=== PATIENT | male | born 1955 | race Caucasian/White ===

== ENCOUNTER 2016-07-07 06:46 | Inpatient (IN) | payer BC ==
[2016-07-07] MEDS ORDERED: SODIUM CHLORIDE 0.9% 1,000 ML IV STA (07:47)
--- NOTE | 2016-07-07 08:05 | XR ---
EXAMINATION TYPE: XR chest 2V DATE OF EXAM: 07/07/2016 8:00 AM COMPARISON: NONE HISTORY: Weakness and pneumonia TECHNIQUE: Frontal and lateral views of the chest are obtained. FINDINGS: There is background of chronic emphysematous change suspected. Increased opacity in bilate ral lower lungs is present. No large pleural effusion or pneumothorax is seen bilaterally The cardiac silhouette size is enlarged. The osseous structures are intact. IMPRESSION: Cardiomegaly with bilateral lower lung likely acute alveolar and interstitial edema and/ or infiltrates. Correlation with old outside study would be beneficial.
[2016-07-07 08:29] LABS: Basophils % (A) 0 %; CH 31.3; CHCM 33.5; Eosinophils % (A) 0 %; HDW 3.14; HGB 13.2 gm/dL (13.0-17.5); Luc # (Auto) 0.23; Luc % (Auto) 2; Lymphocytes # (A) 1.2 k/uL (1.0-4.8); Lymphocytes % (A) 8 %; MCH 30.3 pg (25.0-35.0); MCHC 32.3 g/dL (31.0-37.0); MCV 93.8 fL (80.0-100.0); Mean Platelet Volume 8.4; Monocytes # (A) 0.9 k/uL (0-1.0); Monocytes % (A) 6 %; Neutrophils # (A) 12.7 k/uL (1.3-7.7); Neutrophils % (A) 84 %; RBC 4.37 m/uL (4.30-5.90); RDW 14.6 % (11.5-15.5); WBC 15.1 k/uL (3.8-10.6)
[2016-07-07 08:37] LABS: ALT 251 U/L (21-72); AST 179 U/L (17-59); Alkaline Phosphatase 52 U/L (38-126); Anion Gap 12 mmol/L; Blood Urea Nitrogen 27 mg/dL (9-20); Calcium 9.4 mg/dL (8.4-10.2); Carbon Dioxide 21 mmol/L (22-30); Chloride 108 mmol/L (98-107); Glucose 132 mg/dL (74-99); Magnesium 1.8 mg/dL (1.6-2.3); Non-African American GFR(MDRD) >60 (>60 ml/min/1.73 sqM); Phosphorous 4.1 mg/dL (2.5-4.5); Potassium 4.9 mmol/L (3.5-5.1); Sodium 141 mmol/L (137-145); Total Bilirubin 1.2 mg/dL (0.2-1.3); Total Protein 6.4 g/dL (6.3-8.2)
[2016-07-07 08:38] LABS: INR 1.4 (<1.1); Partial Thromboplastin Time 24.5 sec (22.0-30.0); Prothrombin Time 13.9 sec (9.0-12.0)
--- NOTE | 2016-07-07 08:39 | ED ---
General Adult HPI - General Chief complaint: Abdominal Pain Stated complaint: Abdominal Pain Time Seen by Provider: 07/07/16 07:14 Source: patient Mode of arrival: ambulatory Limitations: no limitations - History of Present Illness Initial comments: This is a 61-year-old male here for evaluation of shortness of breath and cough. Patient has no medical history that he states. He takes no Medications , seen in urgent care 3 days ago for shortness of breath was given antibiotics for possible pneumonia discharged home. Patient states shortness of breath about off but increasing for 3 weeks worse with exertion worse when he lays down flat and worse at night. Patient has no travel history, no fever cough or congestion - Related Data Home Medications Medication Instructions Recorded Confirmed Albuterol Inhaler [Ventolin Hfa 2 puff INHALATION Q6HR PRN 07/07/16 07/07/16 Inhaler] Ibuprofen [Advil] 600 mg PO Q8HR PRN 07/07/16 07/07/16 Levofloxacin [Levaquin] 500 mg PO DAILY 07/07/16 07/07/16 Multivitamin [Men's Multi-Vitamin] 1 tab PO DAILY 07/07/16 07/07/16 guaiFENesin [Mucinex] 1,200 mg PO DAILY 07/07/16 07/07/16 predniSONE 20 mg PO BID 07/07/16 07/07/16 Allergies Allergy/AdvReac Type Severity Reaction Status Date / Time No Known Allergies Allergy Verified 07/07/16 09:26 Review of Systems ROS Statement: Those systems with pertinent positive or pertinent negative responses have been documented in the HPI. ROS Other: All systems not noted in ROS Statement are negative. Past Medical History Past Medical History: Cancer Additional Past Medical History / Comment(s): testicular CA History of Any Multi-Drug Resistant Organisms: None Reported Past Surgical History: Appendectomy Additional Past Surgical History / Comment(s): right testicle removed 2001 Past Psychological History: No Psychological Hx Reported Smoking Status: Former smoker Past Alcohol Use History: Occasional Past Drug Use History: None Reported General Exam Limitations: no limitations General appearance: alert, in no apparent distress Head exam: Present: atraumatic, normocephalic, normal inspection Eye exam: Present: normal appearance, PERRL, EOMI. Absent: scleral icterus, conjunctival injection, periorbital swelling ENT exam: Present: normal exam, mucous membranes moist Neck exam: Present: normal inspection. Absent: tenderness, meningismus, lymphadenopathy Respiratory exam: Present: normal lung sounds bilaterally. Absent: respiratory distress, wheezes, rales, rhonchi, stridor Cardiovascular Exam: Present: regular rate, normal rhythm, normal heart sounds, systolic murmur. Absent: diastolic murmur, rubs, gallop, clicks GI/Abdominal exam: Present: soft, normal bowel sounds. Absent: distended, tenderness, guarding, rebound, rigid Extremities exam: Present: normal inspection, full ROM, normal capillary refill. Absent: tenderness, pedal edema, joint swelling, calf tenderness Back exam: Present: normal inspection Neurological exam: Present: alert, oriented X3, CN II-XII intact Psychiatric exam: Present: normal affect, normal mood Skin exam: Present: warm, dry, intact, normal color. Absent: rash Course Vital Signs 07/07/16 07/07/16 06:49 09:51 Temperature 97.3 F L 97.0 F L Pulse Rate 107 H 105 H Respiratory 20 18 Rate Blood Pressure 101/72 101/70 O2 Sat by Pulse 96 97 Oximetry - Reevaluation(s) Reevaluation #1: 07/07/16 10:16 Patient still feeling short of breath, not well EKG Findings - EKG Comments: EKG Findings:: EKG shows sinus tachycardia without 2, DC 190, QRS 90, QTC 508 Medical Decision Making - Medical Decision Making 58 female year with history of heart murmur, heart failure. Patient denies chest pain with head increases exertional shortness of breath. Patient will be admitted for cardiac observation evaluation and treatment, trending up troponin - Lab Data Result diagrams: 07/07/16 08:11 07/07/16 08:11 Lab Results 07/07/16 07/07/16 07/07/16 Range/Units 08:11 08:11 08:11 WBC 15.1 H (3.8-10.6) k/uL RBC 4.37 (4.30-5.90) m/uL Hgb 13.2 (13.0-17.5) gm/dL Hct 41.0 (39.0-53.0) % MCV 93.8 (80.0-100.0) fL MCH 30.3 (25.0-35.0) pg MCHC 32.3 (31.0-37.0) g/dL RDW 14.6 (11.5-15.5) % Plt Count 301 (150-450) k/uL Neutrophils % 84 % Lymphocytes % 8 % Monocytes % 6 % Eosinophils % 0 % Basophils % 0 % Neutrophils # 12.7 H (1.3-7.7) k/uL Lymphocytes # 1.2 (1.0-4.8) k/uL Monocytes # 0.9 (0-1.0) k/uL Eosinophils # 0.0 (0-0.7) k/uL Basophils # 0.0 (0-0.2) k/uL PT (9.0-12.0) sec INR (<1.1) APTT (22.0-30.0) sec D-Dimer (<0.60) mg/L FEU Sodium 141 (137-145) mmol/L Potassium 4.9 (3.5-5.1) mmol/L Chloride 108 H (98-107) mmol/L Carbon Dioxide 21 L (22-30) mmol/L Anion Gap 12 mmol/L BUN 27 H (9-20) mg/dL Creatinine 0.90 (0.66-1.25) mg/dL Est GFR (MDRD) Af Amer >60 (>60 ml/min/1.73 sqM) Est GFR (MDRD) Non-Af >60 (>60 ml/min/1.73 sqM) Glucose 132 H (74-99) mg/dL Plasma Lactic Acid Jeevan (0.7-2.0) mmol/L Calcium 9.4 (8.4-10.2) mg/dL Phosphorus 4.1 (2.5-4.5) mg/dL Magnesium 1.8 (1.6-2.3) mg/dL Total Bilirubin 1.2 (0.2-1.3) mg/dL AST 179 H (17-59) U/L ALT 251 H (21-72) U/L Alkaline Phosphatase 52 (38-126) U/L Total Creatine Kinase 155 (55-170) U/L CK-MB (CK-2) 7.3 H* (0.0-2.4) ng/mL CK-MB (CK-2) Rel Index 4.7 Troponin I 0.646 H* (0.000-0.034) ng/mL NT-Pro-B Natriuret Pep pg/mL Total Protein 6.4 (6.3-8.2) g/dL Albumin 3.2 L (3.5-5.0) g/dL 07/07/16 07/07/16 07/07/16 Range/Units 08:11 08:11 08:11 WBC (3.8-10.6) k/uL RBC (4.30-5.90) m/uL Hgb (13.0-17.5) gm/dL Hct (39.0-53.0) % MCV (80.0-100.0) fL MCH (25.0-35.0) pg MCHC (31.0-37.0) g/dL RDW (11.5-15.5) % Plt Count (150-450) k/uL Neutrophils % % Lymphocytes % % Monocytes % % Eosinophils % % Basophils % % Neutrophils # (1.3-7.7) k/uL Lymphocytes # (1.0-4.8) k/uL Monocytes # (0-1.0) k/uL Eosinophils # (0-0.7) k/uL Basophils # (0-0.2) k/uL PT 13.9 H (9.0-12.0) sec INR 1.4 (<1.1) APTT 24.5 (22.0-30.0) sec D-Dimer 3.93 H (<0.60) mg/L FEU Sodium (137-145) mmol/L Potassium (3.5-5.1) mmol/L Chloride (98-107) mmol/L Carbon Dioxide (22-30) mmol/L Anion Gap mmol/L BUN (9-20) mg/dL Creatinine (0.66-1.25) mg/dL Est GFR (MDRD) Af Amer (>60 ml/min/1.73 sqM) Est GFR (MDRD) Non-Af (>60 ml/min/1.73 sqM) Glucose (74-99) mg/dL Plasma Lactic Acid Jeevan 1.9 (0.7-2.0) mmol/L Calcium (8.4-10.2) mg/dL Phosphorus (2.5-4.5) mg/dL Magnesium (1.6-2.3) mg/dL Total Bilirubin (0.2-1.3) mg/dL AST (17-59) U/L ALT (21-72) U/L Alkaline Phosphatase (38-126) U/L Total Creatine Kinase (55-170) U/L CK-MB (CK-2) (0.0-2.4) ng/mL CK-MB (CK-2) Rel Index Troponin I (0.000-0.034) ng/mL NT-Pro-B Natriuret Pep 13509 pg/mL Total Protein (6.3-8.2) g/dL Albumin (3.5-5.0) g/dL - Radiology Data Radiology results: report reviewed (Chest x-ray shows bilateral effusions, CTA shows right-sided heart pressures, bilateral pleural effusions), image reviewed Critical Care Time Critical Care Time: Yes Total Critical Care Time: 31 Disposition Clinical Impression: CHF (congestive heart failure), Aortic stenosis, NSTEMI (non-ST elevated myocardial infarction) Disposition: ADMITTED IP TO THIS HOSP Condition: Serious Referrals: Zaid Gallardo MD [Primary Care Provider] - 1-2 days
[2016-07-07] MEDS ORDERED: RX INFO: IV CONTRAST WAS GIVEN 1 EACH MISC MISCELLANE PRN (08:40)
[2016-07-07 09:22] LABS: Creatine Kinase MB 7.3 ng/mL (0.0-2.4); Troponin I 0.646 ng/mL (0.000-0.034)
--- NOTE | 2016-07-07 09:58 | CT ---
EXAMINATION TYPE: CT angio chest DATE OF EXAM: 07/07/2016 9:13 AM COMPARISON: Radiograph same day HISTORY: 61-year-old male elevated d-dimer, pneumonia TECHNIQUE: Contiguous axial scanning of the chest performed with IV Contrast, patient injected with 1 00 mL of Omnipaque 350. Coronal/sagittal MIP reconstructions performed. CT DLP: 385.3 mGycm Automated exposure control for dose reduction was used. FINDINGS: The heart is borderline enlarged without pericardial effusion. Aortic valvular and coronary vessel ca lcifications are present. Marker for coronary artery disease. Ectasia of the ascending aorta at 3.6 cm with conventional arch vessel branching anatomy. There is ec ruby of the upper descending thoracic aorta at 3.0 cm. Satisfactory opacification of the pulmonary arterial system with large caliber to the main right and left pulmonary arteries at 2.8 and 3.0 cm, respectively, suggesting underlying pulmonary arterial hyp ertension. No evidence for pulmonary embolus. There is no reflux of contrast into the hepatic veins or flattening of the interventricular septum. Prominent mediastinal lymph nodes measure up to 9 mm. There is edematous change throughout the intrathoracic fat with small to moderate bilateral pleural e ffusions, thickening of the central interstitium, peribronchovascular round glass opacity especially in the mid and lower lungs with some corresponding septal lines at the lung bases. More confluent pat jenae medial right basilar opacity. Visualized upper abdomen shows no gross abnormality. Bones: Mild endplate spondylosis. No osseous destructive process. IMPRESSION: 1. PULMONARY ARTERIAL HYPERTENSION THOUGH WITHOUT EVIDENCE FOR PULMONARY EMBOLUS. 2. CONSTELLATION OF FINDINGS INCLUDING SMALL TO MODERATE PLEURAL EFFUSIONS, SEPTAL LINES, INTERSTITIA L THICKENING, AND PATCHY AREAS OF GROUNDGLASS. CORRELATE FOR CHF AND DEVELOPING PULMONARY EDEMA. THE PRESENCE OF PLEURAL EFFUSIONS MAKES INFLAMMATORY PROCESSES SUCH E D TECH, VASCULITIS, AND ATYPICAL PNEU MONIAS LESS LIKELY. CLINICALLY CORRELATE.
[2016-07-07] MEDS ORDERED: ASPIRIN 325 MG TAB PO STA (10:13)
[2016-07-07] MEDS ORDERED: HEPARIN SODIUM,PORCINE 5,000 UNIT/ML 1 ML VIAL IV ONE (10:14)
[2016-07-07] MEDS ORDERED: HEPARIN SODIUM,PORCINE 5,000 UNIT/ML 1 ML VIAL IV PRN (10:14)
[2016-07-07] MEDS ORDERED: HEPARIN SODIUM,PORCINE/D5W PMX 25,000 UNIT in DEXTROSE/WATER 1 500ML.BAG IV SCH (10:15)
[2016-07-07] MEDS: SODIUM CHLORIDE 0.9% 1,000 ML IV SCH ×2 (10:31→21:27)
[2016-07-07] MEDS: FUROSEMIDE 10 MG/ML 4 ML VIAL IV SCH ×2 (10:37→21:27)
[2016-07-07] MEDS ORDERED: ALBUTEROL NEBULIZED 2.5 MG/3 ML INHALATION PRN (12:38)
--- NOTE | 2016-07-07 13:45 | P.HPIM ---
<Heather Wallace A - Last Filed: 07/07/16 13:34> History of Present Illness H&P Date: 07/07/16 Chief Complaint: Shortness of breath This is a 61-year-old male. His primary care physician is Dr. Amor Gallardo. He has a past mental history of testicular cancer on the right diagnosed in 2001 status post surgical resection and chemotherapy, hard of hearing, varicose veins status post stripping. Patient has had shortness of breath for a couple of weeks and getting worse. He was unable to get into Dr. Amor Gallardo's office and they went to [facility] on Monday and was diagnosed with pneumonia and placed on Levaquin, albuterol inhaler and steroids. His states that he was not getting any better and the steroids were keeping him from sleeping at night and she made him come into [facility] emergency center for evaluation. Patient denies having any chest pain. He has seen a home health attendant about 1-1/2 years ago when his primary care physician found a leaky valve. He was told that he would eventually need a valve replacement. There was no follow-up and he did not have any medications started. Patient also had a syncopal episode when he got up to the bathroom on Monday night. His d-dimer was 3.93. CAT scan and she'll of the chest showed no pulmonary embolism.small to moderate pleural effusions, septal lines, interstitial thickening, patchy areas of groundglass. Correlate for CHF and developing pulmonary edema. Presence of pleural effusions makes inflammatory processes less likely.borderline cardio megaly without pericardial effusion.chest x-ray shows cardiomegaly with bilateral lower lung likely acute alveolar and interstitial edema and/or infiltrates. His white count was 15.1, GFR greater than 60. Troponin was elevated at0.646. Patient was started on IV Lasix, aspirin, heparin drip. Cardiology consult requested and patient was admitted to the selective care unit. Patient does state that he is feeling okay at this time. Review of Systems All systems: negative Constitutional: Denies chills, Denies fever Eyes: denies blurred vision, denies pain Ears, nose, mouth and throat: Denies headache, Denies sore throat Cardiovascular: Reports decreased exercise tolerance, Reports dyspnea on exertion, Reports leg edema, Reports orthopnea, Reports shortness of breath, Reports syncope, Denies chest pain, Denies palpitations Respiratory: Reports cough Gastrointestinal: Denies abdominal pain, Denies diarrhea, Denies nausea, Denies vomiting Musculoskeletal: Denies myalgias Integumentary: Denies pruritus, Denies rash Neurological: Denies numbness, Denies weakness Psychiatric: Denies anxiety, Denies depression Endocrine: Denies fatigue, Denies weight change Past Medical History Past Medical History: Cancer, Hearing Disorder / Deafness, Syncope Additional Past Medical History / Comment(s): 2001 right testicular CA with surgery and chemo, KOI bilaterally, pt/spouse state he passed out last week . History of Any Multi-Drug Resistant Organisms: None Reported Past Surgical History: Appendectomy Additional Past Surgical History / Comment(s): right testicle removed 2001, 2014 colonoscopy-normal leg. Past Anesthesia/Blood Transfusion Reactions: No Reported Reaction Past Psychological History: No Psychological Hx Reported Additional Psychological History / Comment(s): Pt resides with his spouse. He is independent. Smoking Status: Former smoker Past Alcohol Use History: Daily Additional Past Alcohol Use History / Comment(s): Pt was a smoker 2 packs per day for 15 years and quit 20 years ago. He denies any medical marijuana or marijuana or street drug use. He states he drinks 2 beers a day. 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 Past Drug Use History: None Reported - Past Family History Father Family Medical History: No Reported History Additional Family Medical History / Comment(s): Father is 81 yrs old and healthy. Mother Family Medical History: Cancer Additional Family Medical History / Comment(s): Mother at age 72 from a CVA hemorrhagic with history of breast cancer. Brother(s) Additional Family Medical History / Comment(s): Patient has 2 brothers and one has history of lung cancer and 1 of colon cancer. Sister(s) Additional Family Medical History / Comment(s): Patient has 1 sister with no major medical problems. Patient has one son and one daughter with no major medical problems. Medications and Allergies Home Medications Medication Instructions Recorded Confirmed Type Albuterol Inhaler [Ventolin Hfa 2 puff INHALATION Q6HR PRN 07/07/16 07/07/16 History Inhaler] Ibuprofen [Advil] 600 mg PO Q8HR PRN 07/07/16 07/07/16 History Levofloxacin [Levaquin] 500 mg PO DAILY 07/07/16 07/07/16 History Multivitamin [Men's Multi-Vitamin] 1 tab PO DAILY 07/07/16 07/07/16 History guaiFENesin [Mucinex] 1,200 mg PO DAILY 07/07/16 07/07/16 History predniSONE 20 mg PO BID 07/07/16 07/07/16 History Allergies Allergy/AdvReac Type Severity Reaction Status Date / Time No Known Allergies Allergy Verified 07/07/16 09:26 Physical Exam Vitals: Vital Signs Pulse Resp Pulse Ox 07/07/16 11:56 100 14 100 Gen: This is a overweight 61-year-old male. He is sitting up in bed and appears to be in no acute distress. No respiratory distress noted HEENT: Head is atraumatic, normocephalic. Pupils equal, round. Sclerae is anicteric. Conjunctiva pink. Mucous membranes of the mouth are slightly dry. NECK: Supple. No JVD. No lymphadenopathy. No thyromegaly. LUNGS: Clear to auscultation. No wheezes or rhonchi. No intercostal retractions. HEART: Regular rate and rhythm. Systolic murmur. ABDOMEN: Soft. Bowel sounds are present. No masses. No tenderness. EXTREMITIES: 1+ pedal edema. No calf tenderness. Dorsalis pedis is palpable bilaterally. Varicosities noted on the right lower leg NEUROLOGICAL: Patient is awake, alert and oriented x3. Cranial nerves 2 through 12 are grossly intact. Results CBC & Chem 7: 07/07/16 08:11 07/07/16 08:11 Thrombosis Risk Factor Assmnt - DVT/VTE Prophylaxis DVT/VTE Prophylaxis: Pharmacologic Prophylaxis ordered - Choose All That Apply Any of the Below Risk Factors Present?: Yes Each Factor Represents 1 point: Acute ND, Heart failure (<1month), Obesity (BMI >25) Other Risk Factors: Yes Each Risk Factor Represents 2 Points: Age 61-74 years, Malignancy Other congenital or acquired thrombophilia - If yes, enter type in comment: No Thrombosis Risk Factor Assessment Total Risk Factor Score: 7 Thrombosis Risk Factor Assessment Level: High Risk Assessment and Plan Plan: 1. Acute difficulty breathing secondary to acute heart failure most likely diastolic, aortic stenosis, possible acute coronary syndrome with elevated troponins, possible cardiomyopathy with recent syncopal episode. Patient started on Lasix 40 mg IV every 12 hours. Echocardiogram ordered. Cardiology consult. Continue heparin and aspirin daily. Repeat troponins. 2. Recent treatment for pneumonia. Doubtful based on CAT scan and chest x-ray. 3. Hard of hearing, stable. 4. History of testicular cancer status post surgical resection and chemotherapy , stable. 5. Varicosities right leg status post venous stripping in the past. 6. Remote history of tobacco use. 7. Daily alcohol use of 2 beers. Patient denies having DTs in the past. 8. Gastric intestinal prophylaxis. Protonix. 9. DVT prophylaxis. Heparin drip. Patient will be admitted to the hospital for a minimum of 2 night stay. Discharge plan: Return home Impression and plan of care have been directed as dictated by the signing physician. Heather Wallace nurse practitioner acting as scribe for signing physician. Cc: Dr. Gal Gallardo Time with Patient: Greater than 30 <Fiona Nix - Last Filed: 07/08/16 17:21> Past Medical History Past Medical History: Heart Failure Additional Past Medical History / Comment(s): Aortic stenosis,systolic heart failure. Physical Exam Vitals: Vital Signs Temp Pulse Resp BP BP Pulse Ox 07/08/16 15:32 90 16 07/08/16 15:30 96.6 F L 90 16 130/54 96 07/08/16 11:55 98 16 07/08/16 11:54 97.3 F L 98 16 78/59 95 07/08/16 08:00 96.8 F L 98 16 94/7 96 07/08/16 04:00 97.0 F L 101 H 18 93/61 92 L 07/08/16 00:00 108 H 18 88/64 93 L 07/07/16 20:00 97.8 F 109 H 18 103/66 95 Intake and Output 07/08/16 07/08/16 07/08/16 06:59 14:59 22:59 Intake Total 720 Output Total 2049 Balance -1329 Intake: IV 160 0.9NS @20cc/hr 160 Intake, IV Titration 240 Amount Sodium Chloride 0.9% 1, 240 000 ml @ 20 mls/hr IV . Q24H [facility] Rx#:[id number] Oral 320 Output: Urine 2049 Other: Voiding Method Toilet Toilet Toilet Urinal Urinal Urinal # Voids 1 2 Weight 93.5 kg Results CBC & Chem 7: 07/08/16 05:45 07/08/16 05:45 Labs: Abnormal Lab Results - Last 24 Hours (Table) 07/07/16 07/08/16 07/08/16 Range/Units 20:40 05:45 05:45 WBC 22.7 H (3.8-10.6) k/uL RBC 4.16 L (4.30-5.90) m/uL Hgb 12.8 L (13.0-17.5) gm/dL Neutrophils # 19.7 H (1.3-7.7) k/uL Monocytes # 1.5 H (0-1.0) k/uL BUN 23 H (9-20) mg/dL Glucose 148 H (74-99) mg/dL AST 157 H (17-59) U/L ALT 282 H (21-72) U/L Troponin I 0.597 H* (0.000-0.034) ng/mL Total Protein 5.8 L (6.3-8.2) g/dL Albumin 2.9 L (3.5-5.0) g/dL Assessment and Plan Plan: Acute systolic as it was printed diastolic by mistake along with severe Aortic valve stenosis with EF 20 %. The first paragraph will read: 1. Acute respiratory failure due to acute systolic heart failure and severe Aortic valve stenosis.
[2016-07-07 14:22] VITALS: BMI 27.6
--- NOTE | 2016-07-07 17:58 | CONS ---
DATE OF CONSULTATION: 07/07/2016 This patient's electronic medical record is reviewed. Patient is a 61-year-old gentleman who was having symptoms of shortness of breath for the last one week. Patient initially was seen at [facility] and patient was told he has pneumonia and was put on steroids and Levaquin. However, patient did not improve and continued to have shortness of breath. He came to the emergency room, where patient was found to be in congestive heart failure. Patient's D-dimer level was 3.93. CT scan was performed which did not show any evidence of pulmonary embolism. Patient has been told in the past that he had a heart murmur; according to him, patient was evaluated in our office. We will try to get the records. Patient denies any history of angina. There is no prior history of myocardial infarction. Past medical history includes: 1. History of testicular cancer with surgery. 2. History of appendectomy. SOCIAL HISTORY: Patient is a former smoker. Physical examination at present reveals a 61-year-old gentleman who does not appear to be in any acute distress. Patient's blood pressure is 101/70 mmHg. Patent is afebrile. Heart rate is 100 per minute. Head/ENT examination is negative. Neck is supple. Jugular venous pressure is difficult to assess. Both the carotid pulses are felt. There is no bruit. Chest is symmetrical. HEART: The PMI is not felt. First heart sound is normal. Second heart sound is heard. There is a grade 3/6 ejection systolic murmur noted which peaks in mid to late systole. Lungs reveal bilateral scattered wheezes and a few basal rales. Abdomen is soft. EXTREMITIES: Peripheral pulsations are 1+. EKG shows left ventricular hypertrophy with a strain pattern. Patient lab tests show hemoglobin is 13.8. Electrolytes are normal. Patient's chest x-ray is suggestive of congestive cardiac failure. Patient's proBNP level is 14,500. Patient's echocardiogram reveals severely impaired left ventricular systolic function with evidence of severe degree of aortic stenosis. FINAL IMPRESSION: This patient has presented with shortness of breath due to acute on chronic left ventricular systolic failure. Patient's left ventricular systolic function is severely impaired and there is suggestion of severe aortic stenosis. RECOMMENDATIONS: At present I would recommend continuing to treat with the patient's IV diuretics. After the patient's condition is improved, he will need further evaluation to evaluate the aortic stenosis.
[2016-07-08 06:34] LABS: ALT 282 U/L (21-72); AST 157 U/L (17-59); Alkaline Phosphatase 63 U/L (38-126); Anion Gap 10 mmol/L; Blood Urea Nitrogen 23 mg/dL (9-20); Calcium 9.2 mg/dL (8.4-10.2); Carbon Dioxide 25 mmol/L (22-30); Chloride 105 mmol/L (98-107); Glucose 148 mg/dL (74-99); Non-African American GFR(MDRD) >60 (>60 ml/min/1.73 sqM); Sodium 140 mmol/L (137-145); Total Bilirubin 1.1 mg/dL (0.2-1.3); Total Protein 5.8 g/dL (6.3-8.2)
[2016-07-08 06:45] LABS: Basophils % (A) 0 %; CH 31.7; CHCM 33.5; Eosinophils % (A) 0 %; HCT 39.7 % (39.0-53.0); HDW 3.06; HGB 12.8 gm/dL (13.0-17.5); Luc # (Auto) 0.21; Luc % (Auto) 1; Lymphocytes # (A) 1.3 k/uL (1.0-4.8); Lymphocytes % (A) 6 %; MCH 30.7 pg (25.0-35.0); MCHC 32.2 g/dL (31.0-37.0); MCV 95.3 fL (80.0-100.0); Mean Platelet Volume 9.4; Monocytes # (A) 1.5 k/uL (0-1.0); Monocytes % (A) 6 %; Neutrophils # (A) 19.7 k/uL (1.3-7.7); Neutrophils % (A) 87 %; RBC 4.16 m/uL (4.30-5.90); WBC 22.7 k/uL (3.8-10.6); WBC (Perox) 23.18
[2016-07-08] MEDS: SODIUM CHLORIDE 0.9% 1,000 ML IV SCH (06:58)
[2016-07-08] MEDS: PANTOPRAZOLE 40 MG TABLET PO SCH (06:58)
[2016-07-08] MEDS: ASPIRIN 325 MG TAB PO SCH (08:05)
[2016-07-08] MEDS: guaiFENesin 600 MG TABLET.ER PO SCH (08:05)
[2016-07-08] MEDS: CARVEDILOL 3.125 MG TAB PO SCH ×2 (08:21→17:32)
[2016-07-08] MEDS ORDERED: SODIUM CHLORIDE 0.9% 1,000 ML IV SCH (08:30)
--- NOTE | 2016-07-08 08:36 | PN ---
DATE OF SERVICE: The patient was seen by my associated DrSayra Rosa. Patient comes into the hospital with increasing shortness of breath. Patient was seen in outpatient clinic, emergency clinic, felt to have had a pneumonia, has been treated with antibiotics without any improvement. Patient noted to have pulmonary edema without any evidence of pulmonary embolism. Patient also has moderate severe aortic stenosis with severely impaired LV function and predominant left ventricular failure. The patient also admits to drinking alcohol quite a bit and possibly drinking more than what he should be maybe which resulted in poor LV function and patient also has non-Q-wave myocardial infarction with some ST segment depression, remains in sinus rhythm. Patient's heparin has been stopped because of hemoptysis. Will have a pulmonary siebel consultant see him and we will continue supportive care and continue to improve his left ventricular function. When left ventricular function improved, patient needs to have a cardiac catheterization to define severity of coronary artery disease associated severity of aortic stenosis. Patient is not having any chest pain or pressure at present time. Patient is alert and oriented. Patient is reasonably active, but ( ) have alcohol may be his primary problem with aortic stenosis. Never been under the care of ( ). Patient is currently on Lasix 40 mg IV push q.12 hours along with aspirin and pantoprazole was added. Patient started to have hemoptysis. Will have a pulmonary siebel consultant see him and heparin has been discontinued because of the hemoptysis. Will add carvedilol 3.125 mg p.o. b.i.d. and continue supportive care. Patient's prognosis is guarded in spite of therapy. Physical examination revealed a 61-year-old gentleman, not in acute distress with stable vital signs with a pulse rate 109 beats per minute and regular, blood pressure of 103/66, respirations are 18. HEAD: Normocephalic. JVD is elevated minimally 10 mm above the clavicle, ejection systolic murmur heard in the aortic area. S1 and S2. S3 gallop is noted. Lungs show a few scattered rhonchi and rales all over the lung [place]. Extremities reveal no pedal edema. ASSESSMENT: 1. Acute on chronic congestive heart failure, predominant left ventricular failure. 2. Moderate to severe aortic stenosis. 3. Severely impaired left ventricular function, cardiomyopathy, need to rule out ischemia versus alcohol related. 4. No history of hypertension. 5. No history of diabetes. 6. Hemoptysis, need to have pulmonary siebel consultant evaluate for further problems. RECOMMENDATIONS: Continue supportive care and treatment for congestive heart failure, predominant left ventricular failure. Once the condition is better, patient needs to have a cardiac catheterization to assess severity of coronary artery disease. Patient's creatinine is normal. Troponins are consistent with non-Q-wave myocardial infarction 0.64 ( ). Prognosis is guarded in spite of therapy.
--- NOTE | 2016-07-08 09:23 | ECHOF ---
Referral Reason:Heart Failure MEASUREMENTS -------- HEIGHT: 182.9 cm WEIGHT: 97.5 kg BP: IVSd: 1.0 cm (0.6 - 1.1) LVIDd: 6.0 cm (3.9 - 5.3) LVPWd: 1.1 cm (0.6 - 1.1) IVSs: 1.4 cm LVIDs: 5.7 cm LVPWs: 1.2 cm Ao Diam: 3.9 cm (2.0 - 3.7) AV Cusp: 0.7 cm (1.5 - 2.6) LA Diam: 4.4 cm (2.7 - 3.8) MV EXCURSION: 9.371 mm (> 18.000) MV EF SLOPE: 38 mm/s (70 - 150) EPSS: 2.8 cm MV E Bryce: 1.22 m/s MV DecT: 228 ms MV A Bryce: 0.22 m/s MV E/A Ratio: 5.45 AV maxP.95 mmHg AV meanP.03 mmHg RAP: 5.00 mmHg RVSP: 13.29 mmHg FINDINGS -------- Sinus rhythm. This was a technically good study. The left ventricle is mildly dilated. Left ventricular wall thickness is normal. There is severe global hypokinesis of LV . Overall left ventricular systolic function is severely impaired with, an EF < 20%. The right ventricle is normal in size and function. The left atrium is mildly dilated. The right atrium is normal in size. Aortic valve is trileaflet and is severely thickened. There is severe aortic stenosis present. Peak/mean gradient across the Aortic Valve is 64.95mmHg / 46.03mmHg. The mitral valve leaflets are moderate to severely thickened. Moderate mitral annular calcification present. Mild mitral regurgitation is present. The peak and mean MV gradients are 7.08mmHg 2.17mmHg as measured by doppler. Mild tricuspid regurgitation present. The right ventricular systolic pressure, as measured by Doppler, is 13.29mmHg. Pulmonic valve appears structurally normal. The aortic root is mildy dilated. The pericardium is normal. CONCLUSIONS -------- 1. Sinus rhythm. 2. Aortic valve is trileaflet and is severely thickened. 3. There is severe aortic stenosis present. 4. Peak/mean gradient across the Aortic Valve is 64.95mmHg / 46.03mmHg. 5. The mitral valve leaflets are moderate to severely thickened. 6. Moderate mitral annular calcification present. 7. Mild mitral regurgitation is present. 8. The peak and mean MV gradients are 7.08mmHg 2.17mmHg as measured by doppler. 9. Mild tricuspid regurgitation present. 10. The right ventricular systolic pressure, as measured by Doppler, is 13.29mmHg. 11. Pulmonic valve appears structurally normal. 12. This was a technically good study. 13. The aortic root is mildy dilated. 14. The pericardium is normal. 15. The left ventricle is mildly dilated. 16. Left ventricular wall thickness is normal. 17. There is severe global hypokinesis of LV . 18. Overall left ventricular systolic function is severely impaired with, an EF < 20%. 19. The right ventricle is normal in size and function. 20. The left atrium is mildly dilated. 21. The right atrium is normal in size. PULL OUT OPERATOR: Krista Matta RDCS
[2016-07-08] MEDS: FUROSEMIDE 10 MG/ML 4 ML VIAL IV SCH (10:50)
--- NOTE | 2016-07-08 13:10 | P.PN ---
Subjective This is a 61-year-old male. His primary care physician is Dr. Amor Gallardo. He has a past mental history of testicular cancer on the right diagnosed in 2001 status post surgical resection and chemotherapy, hard of hearing, varicose veins status post stripping. Patient has had shortness of breath for a couple of weeks and getting worse. He was unable to get into Dr. Amor Gallardo's office and they went to [place] on Monday and was diagnosed with pneumonia and placed on Levaquin, albuterol inhaler and steroids. His states that he was not getting any better and the steroids were keeping him from sleeping at night and she made him come into [facility] emergency center for evaluation. Patient denies having any chest pain. He has seen a check embosser about 1-1/2 years ago when his primary care physician found a leaky valve. He was told that he would eventually need a valve replacement. There was no follow-up and he did not have any medications started. Patient also had a syncopal episode when he got up to the bathroom on Monday night. His d-dimer was 3.93. CAT scan and she'll of the chest showed no pulmonary embolism.small to moderate pleural effusions, septal lines, interstitial thickening, patchy areas of groundglass. Correlate for CHF and developing pulmonary edema. Presence of pleural effusions makes inflammatory processes less likely.borderline cardio megaly without pericardial effusion.chest x-ray shows cardiomegaly with bilateral lower lung likely acute alveolar and interstitial edema and/or infiltrates. His white count was 15.1, GFR greater than 60. Troponin was elevated at0.646. Patient was started on IV Lasix, aspirin, heparin drip. Cardiology consult requested and patient was admitted to the selective care unit. Patient does state that he is feeling okay at this time. 07/08: Repeat WBC is 22.7. troponins have been 0.646, 0.643 and 0.597. Repeat AST and ALT are still elevated. Patient is followed by cardiology with recommendations to treat heart failure and once stable heart catheterization. Echocardiogram reveals severe aortic stenosis, mild mitral regurgitation, mild tricuspid regurgitation, severe global hypokinesia of LV, EF less than 20%. Off heparin gtt. IV to saline lock. Lasix decreased to 20mg twice daily. Weight is down 4 kg. Objective - Vital Signs Vital signs: Vital Signs Temp 96.8 F L 07/08/16 08:00 Pulse 98 07/08/16 08:00 Resp 16 07/08/16 08:00 BP 94/7 07/08/16 08:00 Pulse Ox 96 07/08/16 08:00 Intake & Output 07/07/16 07/08/16 07/08/16 18:59 06:59 18:59 Intake Total 731.667 380 Output Total 850 1050 Balance -118.333 -670 Weight 97.522 kg 93.5 kg Intake: IV 160 0.9NS @20cc/hr 160 Intake, IV Titration 331.667 Amount Heparin Sodium,Porcine/ 131.667 D5w Pmx 25,000 unit In Dextrose/Water 1 500ml. bag @ 10.26 UNITS/KG/HR 20.01 mls/hr IV .Q24H [facility] Rx#:[id number] Sodium Chloride 0.9% 1, 200 000 ml @ 100 mls/hr IV . Q10H [facility] Rx#:[id number] Oral 400 220 Output: Urine 850 1050 Other: Voiding Method Urinal Toilet Toilet Urinal Urinal # Voids 1 1 4 - Exam Gen: This is a overweight 61-year-old male. He is sitting up in bed and appears to be in no acute distress. No respiratory distress noted HEENT: Head is atraumatic, normocephalic. Pupils equal, round. Sclerae is anicteric. Conjunctiva pink. Mucous membranes of the mouth are slightly dry. NECK: Supple. No JVD. No lymphadenopathy. No thyromegaly. LUNGS: Clear to auscultation. No wheezes or rhonchi. No intercostal retractions. HEART: Regular rate and rhythm. Systolic murmur. ABDOMEN: Soft. Bowel sounds are present. No masses. No tenderness. EXTREMITIES: 1+ pedal edema. No calf tenderness. Dorsalis pedis is palpable bilaterally. Varicosities noted on the right lower leg NEUROLOGICAL: Patient is awake, alert and oriented x3. Cranial nerves 2 through 12 are grossly intact. - Labs CBC & Chem 7: 07/08/16 05:45 07/08/16 05:45 Labs: Abnormal Lab Results - Last 24 Hours (Table) 07/07/16 07/07/16 07/08/16 Range/Units 15:37 20:40 05:45 WBC 22.7 H (3.8-10.6) k/uL RBC 4.16 L (4.30-5.90) m/uL Hgb 12.8 L (13.0-17.5) gm/dL Neutrophils # 19.7 H (1.3-7.7) k/uL Monocytes # 1.5 H (0-1.0) k/uL BUN (9-20) mg/dL Glucose (74-99) mg/dL AST (17-59) U/L ALT (21-72) U/L Troponin I 0.643 H* 0.597 H* (0.000-0.034) ng/mL Total Protein (6.3-8.2) g/dL Albumin (3.5-5.0) g/dL 07/08/16 Range/Units 05:45 WBC (3.8-10.6) k/uL RBC (4.30-5.90) m/uL Hgb (13.0-17.5) gm/dL Neutrophils # (1.3-7.7) k/uL Monocytes # (0-1.0) k/uL BUN 23 H (9-20) mg/dL Glucose 148 H (74-99) mg/dL AST 157 H (17-59) U/L ALT 282 H (21-72) U/L Troponin I (0.000-0.034) ng/mL Total Protein 5.8 L (6.3-8.2) g/dL Albumin 2.9 L (3.5-5.0) g/dL Assessment and Plan Plan: 1. Acute difficulty breathing secondary to acute systolic heart failure, severe aortic stenosis, non-ST elevated myocardial infarction, cardiomyopathyeither ischemic or alcoholic with recent syncopal episode. Patient started on Lasix 20 mg IV every 12 hours. Echocardiogram as above. Cardiology consult. Continue aspirin daily. Repeat troponins as above. 2. Recent treatment for pneumonia. Doubtful based on CAT scan and chest x-ray. 3. Hard of hearing, stable. 4. History of testicular cancer status post surgical resection and chemotherapy , stable. 5. Varicosities right leg status post venous stripping in the past. 6. Remote history of tobacco use. 7. Daily alcohol use of 2 beers. Patient denies having DTs in the past. 8. Gastric intestinal prophylaxis. Protonix. 9. DVT prophylaxis. Heparin drip. Discharge plan: Return home Impression and plan of care have been directed as dictated by the signing physician. Heather Wallace nurse practitioner acting as scribe for signing physician. Time with Patient: Greater than 30
--- NOTE | 2016-07-08 14:14 | XR ---
EXAMINATION TYPE: XR chest 2V DATE OF EXAM: 07/08/2016 2:08 PM COMPARISON: 07/07/2016 HISTORY: Chest congestion FINDINGS: 2 views the chest are submitted. There are bilateral pleural effusions with cardiomegaly and bibasila r infiltrate. There is a diffuse interstitial pattern. The heart is enlarged. No pneumothorax. Arthr opathy of the shoulders seen. Degenerative change of the spine noted. IMPRESSION: 1. Interstitial changes with cardiomegaly correlate for interstitial pneumonitis or venous congestion .
[2016-07-08] MEDS: MULTIVITAMINS, THERA 1 EACH TAB PO SCH (14:21)
--- NOTE | 2016-07-08 15:49 | P.CNPUL ---
History of Present Illness Consult date: 07/08/16 Reason for consult: dyspnea History of present illness: This is a 61-year-old male patient was having some shortness of breath approximately 1-2 weeks back. He reported exertional dyspnea. No orthopnea. No paroxysmal nocturnal dyspnea. He was having some limited cough and chest congestion. No chills. No fever. No pleurisy. No hemoptysis. The patient was seen outpatient clinics and he was given a ten-day course of Levaquin, prednisone burst taper and Ventolin. The patient was unable to complete a prednisone burst taper due to side effects. He did however take around 5 day worth of Levaquin. In the hospital the patient was seen in the emergency department initially and he was found to have some borderline elevation of d- dimer is at 3.93. CAT scan of the chest was done and it showed no evidence of pulmonary embolism. There was small to moderate-sized pleural effusions and septal lines and interstitial thickenings with some limited groundglass changes in lung bases bilaterally which raises the suspicion for congestion heart failure. In fact the patient was further worked up by an echocardiogram and he was found to have significant cardiomyopathy with an ejection fraction of less than 20%, severe aortic stenosis with a peak aortic valve gradient of 64 mmHg. There was also mild mitral regurgitation and mild chest cuspid regurgitation without any significant pericardial effusion. Based on all this, the patient was started on diuretics and he is currently on Lasix 20 mg IV push every 12 hours. He is feeling better. No chest pain. No swelling in lower extremities. No syncope. Troponins are positive and the levels are 0.6, 0.6 and 0.5 respectively. BNP level at a time of admission was above 14,000. Renal function is within normal limits. Review of Systems full review of system was done and the positive findings are almost above in history of present illness Past Medical History Past Medical History: Cancer, Hearing Disorder / Deafness, Syncope Additional Past Medical History / Comment(s): Testicular cancer with a previous orchiectomy followed by chemoradiation therapy [id number], bilateral hearing impairment, History of Any Multi-Drug Resistant Organisms: None Reported Past Surgical History: Appendectomy Additional Past Surgical History / Comment(s): right orchiectomy 2001, 2014 colonoscopy-normal leg. Past Anesthesia/Blood Transfusion Reactions: No Reported Reaction Past Psychological History: No Psychological Hx Reported Additional Psychological History / Comment(s): Pt resides with his spouse. He is independent. Smoking Status: Former smoker Past Alcohol Use History: Daily Additional Past Alcohol Use History / Comment(s): Pt was a smoker 2 packs per day for 15 years and quit 20 years ago. He denies any medical marijuana or marijuana or street drug use. He states he drinks 2 beers a day. 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 Past Drug Use History: None Reported - Past Family History Father Family Medical History: No Reported History Additional Family Medical History / Comment(s): Father is 81 yrs old and healthy. Mother Family Medical History: Cancer Additional Family Medical History / Comment(s): Mother at age 72 from a CVA hemorrhagic with history of breast cancer. Brother(s) Additional Family Medical History / Comment(s): Patient has 2 brothers and one has history of lung cancer and 1 of colon cancer. Sister(s) Additional Family Medical History / Comment(s): Patient has 1 sister with no major medical problems. Patient has one son and one daughter with no major medical problems. Medications and Allergies Home Medications Medication Instructions Recorded Confirmed Type Albuterol Inhaler [Ventolin Hfa 2 puff INHALATION Q6HR PRN 07/07/16 07/07/16 History Inhaler] Ibuprofen [Advil] 600 mg PO Q8HR PRN 07/07/16 07/07/16 History Levofloxacin [Levaquin] 500 mg PO DAILY 07/07/16 07/07/16 History Multivitamin [Men's Multi-Vitamin] 1 tab PO DAILY 07/07/16 07/07/16 History guaiFENesin [Mucinex] 1,200 mg PO DAILY 07/07/16 07/07/16 History predniSONE 20 mg PO BID 07/07/16 07/07/16 History Allergies Allergy/AdvReac Type Severity Reaction Status Date / Time No Known Allergies Allergy Verified 07/07/16 09:26 Physical Exam Vitals: Vital Signs Temp Pulse Resp BP BP Pulse Ox 07/08/16 15:32 90 16 07/08/16 15:30 96.6 F L 90 16 130/54 96 07/08/16 11:55 98 16 07/08/16 11:54 97.3 F L 98 16 78/59 95 07/08/16 08:00 96.8 F L 98 16 94/7 96 07/08/16 04:00 97.0 F L 101 H 18 93/61 92 L 07/08/16 00:00 108 H 18 88/64 93 L 07/07/16 20:00 97.8 F 109 H 18 103/66 95 07/07/16 15:45 102 H 16 07/07/16 15:44 97.0 F L 102 H 16 92/63 94 L Intake and Output 07/08/16 07/08/16 07/08/16 06:59 14:59 22:59 Intake Total 720 Output Total 2049 Balance -1330 Intake: IV 160 0.9NS @20cc/hr 160 Intake, IV Titration 240 Amount Sodium Chloride 0.9% 1, 240 000 ml @ 20 mls/hr IV . Q24H [facility] Rx#:[id number] Oral 320 Output: Urine 2049 Other: Voiding Method Toilet Toilet Toilet Urinal Urinal Urinal # Voids 1 2 Weight 93.5 kg Head exam was generally normal. There was no scleral icterus or corneal arcus. Mucous membranes were moist.Neck was supple and without jugular venous distension, thyromegaly, or carotid bruits. Carotids were easily palpable bilaterally. There was no adenopathy. Lung sounds are diminished bilaterally especially in lung bases. No crackles. No wheezes. No rhonchi. Heart sounds are regular and there is a harsh systolic ejection murmur grade 4/6 heard throughout the precordium.Abdominal exam revealed normal bowel sounds. The abdomen was soft, non-tender, and without masses, organomegaly, or appreciable enlargement of the abdominal aorta.Examination of the extremities revealed easily palpable radial, femoral and pedal pulses. There was no cyanosis, clubbing or edema. Results - Laboratory Findings CBC and BMP: 07/08/16 05:45 07/08/16 05:45 PT/INR, D-dimer PT 13.9 sec (9.0-12.0) H 07/07/16 08:11 INR 1.4 (<1.1) 07/07/16 08:11 D-Dimer 3.93 mg/L FEU (<0.60) H 07/07/16 08:11 Abnormal lab findings: Abnormal Labs 07/07/16 07/07/16 07/08/16 15:37 20:40 05:45 WBC 22.7 H RBC 4.16 L Hgb 12.8 L Neutrophils # 19.7 H Monocytes # 1.5 H BUN Glucose AST ALT Troponin I 0.643 H* 0.597 H* Total Protein Albumin 07/08/16 05:45 WBC RBC Hgb Neutrophils # Monocytes # BUN 23 H Glucose 148 H AST 157 H ALT 282 H Troponin I Total Protein 5.8 L Albumin 2.9 L - Diagnostic Findings Chest x-ray: image reviewed Assessment and Plan Plan: Assessment 1 acute CHF, systolic dysfunction, with an ejection fraction of less than 20% on echocardiogram and evidence of severe aortic stenosis. CT angios the chest shows no evidence of pneumonia and there is bilateral pleural effusion and hazy groundglass infiltrates in lung bases, typical of CHF 2 severe aortic stenosis 3 acute non-ST elevation myocardial infarction [place] positive troponin leaks 4 leukocytosis, mild, likely reactive due to steroid use 5 impaired hearing 6 testicular cancer status post right orchiectomy followed by chemotherapy currently inactive in stable Plan No need for antibiotics. No need for systemic steroids. Continue diuresis. Management of an acute non-ST segment elevation myocardial infarctions CHF per cardiology. Likely will need a cardiac catheterization. Echocardiogram results were noted. Continue Coreg. Continue aspirin. continue IV heparin. IV diuretics and this will be switched to oral once the patient is further optimized.
[2016-07-08 17:47] LABS: Appearance,Urine Clear (Clear); Bilirubin,Urine 1+ (Negative); Glucose,Urine (UA) Negative (Negative); Ketones,Urine Negative (Negative); Leukocyte Esterase,Urine Negative (Negative); Mucus,Urine Occasional /hpf; Nitrite,Urine Negative (Negative); Particle Count 15526; Protein,Urine 2+ (Negative); RBC,Urine 2 /hpf (0-5); Specific Gravity,Urine 1.031 (1.001-1.035); UA Billing (MACRO vs. MICRO) MICRO; WBC,Urine 3 /hpf (0-5)
[2016-07-08] MEDS ORDERED: FUROSEMIDE 10 MG/ML 2 ML VIAL IV SCH (21:00)
[2016-07-09 06:38] LABS: Basophils % (A) 0 %; CH 31.1; CHCM 33.3; Eosinophils % (A) 0 %; HCT 40.4 % (39.0-53.0); HDW 3.06; Luc # (Auto) 0.32; Luc % (Auto) 2; Lymphocytes # (A) 1.6 k/uL (1.0-4.8); Lymphocytes % (A) 8 %; MCH 30.4 pg (25.0-35.0); MCHC 32.3 g/dL (31.0-37.0); MCV 94.1 fL (80.0-100.0); Mean Platelet Volume 8.5; Monocytes # (A) 1.5 k/uL (0-1.0); Monocytes % (A) 7 %; Neutrophils # (A) 17.1 k/uL (1.3-7.7); Neutrophils % (A) 83 %; RBC 4.29 m/uL (4.30-5.90); RDW 14.9 % (11.5-15.5); WBC 20.5 k/uL (3.8-10.6); WBC (Perox) 22.42
[2016-07-09 06:54] LABS: ALT 678 U/L (21-72); AST 672 U/L (17-59); Alkaline Phosphatase 70 U/L (38-126); Anion Gap 13 mmol/L; Blood Urea Nitrogen 39 mg/dL (9-20); Carbon Dioxide 23 mmol/L (22-30); Chloride 102 mmol/L (98-107); Glucose 130 mg/dL (74-99); Non-African American GFR(MDRD) 59 (>60 ml/min/1.73 sqM); Potassium 4.3 mmol/L (3.5-5.1); Sodium 138 mmol/L (137-145); Total Bilirubin 1.7 mg/dL (0.2-1.3); Total Protein 5.7 g/dL (6.3-8.2)
[2016-07-09] MEDS: PANTOPRAZOLE 40 MG TABLET PO SCH (06:54)
[2016-07-09] MEDS: guaiFENesin 600 MG TABLET.ER PO SCH (10:06)
[2016-07-09] MEDS: ASPIRIN 325 MG TAB PO SCH (10:06)
--- NOTE | 2016-07-09 10:51 | PN ---
INTERVAL HISTORY: Patient continued to be hemodynamically stable. Currently sitting at the bedside said that he was up to the bathroom feeling slightly short of breath, but no major events reported by nursing staff. Patient is denying abdominal pain, dizziness, lightheadedness, or blurry vision. PHYSICAL EXAMINATION: VITAL SIGNS: 97.1, 88, 18, 80/60 and saturation is 96% on room air. LUNGS: Diminished bilaterally. HEART: Normal S1, S2. ABDOMEN: Soft, no tenderness, positive bowel sounds in all 4 quadrants. LOWER EXTREMITY: Trace edema. PSYCH: Alert and oriented, following commands. SKIN: No new rash. IMAGING AND LABS: White blood count is 20, normal otherwise CBC. Chem-7 shown normal findings. Liver function tests elevated at 672 AST and 157 ALT, albumin is low at 2.7. ASSESSMENT AND PLAN: 1. Acute congestive heart failure exacerbation with well-known ejection fraction 20%, severe aortic stenosis. Will follow up with cardiology recommendation. Will continue with current diuretics. Continue cardioprotective medication. Prognosis is still guarded. 2. Leukocytosis. The patient is afebrile and received steroids. Will continue monitoring, likely reactive. 3. Elevated liver function tests could be related to low blood pressure and shock liver. I would like to monitor his liver function closely. Repeat the blood work in the morning and monitor his general condition closely. 4. Severe protein calorie malnutrition and cachexia. Will encourage p.o. intake and offer Ensure 3 times daily. 5. Severe debility and weakness, will have PT, OT evaluate the patient. 6. Prognosis is guarded.
--- NOTE | 2016-07-09 11:47 | P.PN ---
Subjective Principal diagnosis: CHF/severe aortic stenosis This is a pleasant 61-year-old gentleman with no significant past medical history who presented to the emergency room with progressive dyspnea. The patient was diagnosed with congestive heart failure exacerbation. He underwent an echocardiogram which showed severely impaired LV function with an ejection fraction of 20% with evidence of severe aortic stenosis and mean gradient of more than 40 mmHg. The patient was started on Lasix IV and he was diuresed very well. Clinically he is feeling better. The shortness of breath has improved. He has no orthopnea. The physical examination showed no crackles. The blood pressure has been marginally low and it has been in the 80s and 90s today. I'm going to DC the Coreg. Switch the patient from Lasix IV to Lasix by mouth. The patient need to have a heart catheterization to assess for coronary artery disease and he needs to have an aortic valve replacement with or without CABG depends on the anatomy of his coronary arteries. I discussed that with him and his . Objective - Vital Signs Vital signs: Vital Signs Temp 96.9 F L 07/09/16 08:21 Pulse 90 07/09/16 10:00 Resp 18 07/09/16 08:23 BP 89/68 07/09/16 10:00 Pulse Ox 97 07/09/16 08:21 Intake & Output 07/08/16 07/09/16 07/09/16 18:59 06:59 18:59 Intake Total 840 180 Output Total 2050 350 Balance -1210 -350 180 Weight 94.3 kg Intake: IV 160 0.9NS @20cc/hr 160 Intake, IV Titration 240 Amount Sodium Chloride 0.9% 1, 240 000 ml @ 20 mls/hr IV . Q24H SANTOS Rx#:[id number] Oral 440 180 Output: Urine 2050 350 Other: Voiding Method Toilet Toilet Toilet Urinal Urinal Urinal # Voids 2 1 - Constitutional General appearance: Present: no acute distress - Respiratory Respiratory: bilateral: CTA - Cardiovascular Rhythm: regular Heart sounds: normal: S1 Abnormal Heart Sounds: Present: systolic murmur - Labs CBC & Chem 7: 07/09/16 06:21 07/09/16 06:21 Labs: Abnormal Lab Results - Last 24 Hours (Table) 07/08/16 07/09/16 07/09/16 Range/Units 17:18 06:21 06:21 WBC 20.5 H (3.8-10.6) k/uL RBC 4.29 L (4.30-5.90) m/uL Neutrophils # 17.1 H (1.3-7.7) k/uL Monocytes # 1.5 H (0-1.0) k/uL BUN 39 H (9-20) mg/dL Glucose 130 H (74-99) mg/dL Total Bilirubin 1.7 H (0.2-1.3) mg/dL AST 672 H (17-59) U/L ALT 678 H (21-72) U/L Total Protein 5.7 L (6.3-8.2) g/dL Albumin 2.7 L (3.5-5.0) g/dL Urine Protein 2+ H (Negative) Urine Blood Large H (Negative) Urine Bilirubin 1+ H (Negative) Hyaline Casts 17 H (0-2) /lpf Urine Mucus Occasional H (None) /hpf Microbiology - Last 24 Hours (Table) 07/08/16 17:18 Urine Culture - Preliminary Urine,Clean Catch Assessment and Plan Plan: Assessment Acute respiratory failure Congestive heart failure exacerbation secondary to systolic dysfunction Severe cardiomyopathy unknown if it's ischemic or nonischemic Severe aortic stenosis Plan DC the Coreg Switch the patient to Lasix by mouth Plan for heart catheterization this week.
--- NOTE | 2016-07-09 12:22 | P.PN ---
Subjective This is a 61-year-old male patient was having some shortness of breath approximately 1-2 weeks back. He reported exertional dyspnea. No orthopnea. No paroxysmal nocturnal dyspnea. He was having some limited cough and chest congestion. No chills. No fever. No pleurisy. No hemoptysis. The patient was seen outpatient clinics and he was given a ten-day course of Levaquin, prednisone burst taper and Ventolin. The patient was unable to complete a prednisone burst taper due to side effects. He did however take around 5 day worth of Levaquin. In the hospital the patient was seen in the emergency department initially and he was found to have some borderline elevation of d- dimer is at 3.93. CAT scan of the chest was done and it showed no evidence of pulmonary embolism. There was small to moderate-sized pleural effusions and septal lines and interstitial thickenings with some limited groundglass changes in lung bases bilaterally which raises the suspicion for congestion heart failure. In fact the patient was further worked up by an echocardiogram and he was found to have significant cardiomyopathy with an ejection fraction of less than 20%, severe aortic stenosis with a peak aortic valve gradient of 64 mmHg. There was also mild mitral regurgitation and mild chest cuspid regurgitation without any significant pericardial effusion. Based on all this, the patient was started on diuretics and he is currently on Lasix 20 mg IV push every 12 hours. He is feeling better. No chest pain. No swelling in lower extremities. No syncope. Troponins are positive and the levels are 0.6, 0.6 and 0.5 respectively. BNP level at a time of admission was above 14,000. Renal function is within normal limits. the patient is seen again today 07/09/2016 in the selective care unit. He is awake and alert in no acute distress. His only complaint is that of continued dyspnea on exertion. He is currently in a negative balance. He is maintaining good O2 saturations in the upper 90s on room air. He denies any chest pain, palpitations lightheadedness or dizziness. Cardiology is planning for possible cardiac catheterization on Monday. Objective - Vital Signs Vital signs: Vital Signs Temp 96.9 F L 07/09/16 08:21 Pulse 90 07/09/16 10:00 Resp 18 07/09/16 08:23 BP 89/68 07/09/16 10:00 Pulse Ox 97 07/09/16 08:21 Intake & Output 07/08/16 07/09/16 07/09/16 18:59 06:59 18:59 Intake Total 840 180 Output Total 2049 350 Balance -1210 -350 180 Weight 94.3 kg Intake: IV 160 0.9NS @20cc/hr 160 Intake, IV Titration 240 Amount Sodium Chloride 0.9% 1, 240 000 ml @ 20 mls/hr IV . Q24H [facility]ANTOS Rx#:[id number] Oral 440 180 Output: Urine 2049 350 Other: Voiding Method Toilet Toilet Toilet Urinal Urinal Urinal # Voids 2 1 - Exam Head exam was generally normal. There was no scleral icterus or corneal arcus. Mucous membranes were moist.Neck was supple and without jugular venous distension, thyromegaly, or carotid bruits. Carotids were easily palpable bilaterally. There was no adenopathy. Lung sounds are diminished bilaterally especially in lung bases. No crackles. No wheezes. No rhonchi. Heart sounds are regular and there is a harsh systolic ejection murmur grade 4/6 heard throughout the precordium.Abdominal exam revealed normal bowel sounds. The abdomen was soft, non-tender, and without masses, organomegaly, or appreciable enlargement of the abdominal aorta.Examination of the extremities revealed easily palpable radial, femoral and pedal pulses. There was no cyanosis, clubbing or edema. - Labs CBC & Chem 7: 07/09/16 06:21 07/09/16 06:21 Labs: Abnormal Lab Results - Last 24 Hours (Table) 07/08/16 07/09/16 07/09/16 Range/Units 17:18 06:21 06:21 WBC 20.5 H (3.8-10.6) k/uL RBC 4.29 L (4.30-5.90) m/uL Neutrophils # 17.1 H (1.3-7.7) k/uL Monocytes # 1.5 H (0-1.0) k/uL BUN 39 H (9-20) mg/dL Glucose 130 H (74-99) mg/dL Total Bilirubin 1.7 H (0.2-1.3) mg/dL AST 672 H (17-59) U/L ALT 678 H (21-72) U/L Total Protein 5.7 L (6.3-8.2) g/dL Albumin 2.7 L (3.5-5.0) g/dL Urine Protein 2+ H (Negative) Urine Blood Large H (Negative) Urine Bilirubin 1+ H (Negative) Hyaline Casts 17 H (0-2) /lpf Urine Mucus Occasional H (None) /hpf Microbiology - Last 24 Hours (Table) 07/08/16 17:18 Urine Culture - Preliminary Urine,Clean Catch Assessment and Plan Plan: Assessment 1 acute CHF, systolic dysfunction, with an ejection fraction of less than 20% on echocardiogram and evidence of severe aortic stenosis. CT angios the chest shows no evidence of pneumonia and there is bilateral pleural effusion and hazy groundglass infiltrates in lung bases, typical of CHF 2 severe aortic stenosis 3 acute non-ST elevation myocardial infarction [place] positive troponin leaks 4 leukocytosis, mild, likely reactive due to steroid use 5 impaired hearing 6 testicular cancer status post right orchiectomy followed by chemotherapy currently inactive in stable plan: The patient was seen and evaluated by Dr. Jovel. He is currently stable from the pulmonary standpoint. We'll continue with his current medications. Cardiology is on the case as well and are planning for cardiac catheterization on Monday possibly. We'll increase his activity as tolerated. We'll continue to follow.
[2016-07-09] MEDS: FUROSEMIDE 20 MG TAB PO SCH ×2 (12:42→18:23)
[2016-07-09] MEDS: MULTIVITAMINS, THERA 1 EACH TAB PO SCH (12:42)
[2016-07-10 06:20] LABS: Basophils % (A) 0 %; CH 30.7; CHCM 32.6; Eosinophils % (A) 0 %; HCT 39.9 % (39.0-53.0); HDW 3.17; HGB 12.8 gm/dL (13.0-17.5); Hypochromasia Slight; Luc # (Auto) 0.35; Luc % (Auto) 2; Lymphocytes # (A) 1.8 k/uL (1.0-4.8); Lymphocytes % (A) 10 %; MCH 30.4 pg (25.0-35.0); MCV 94.9 fL (80.0-100.0); Monocytes # (A) 1.1 k/uL (0-1.0); Monocytes % (A) 6 %; Neutrophils % (A) 82 %; RBC 4.21 m/uL (4.30-5.90); RDW 15.1 % (11.5-15.5); WBC 18.3 k/uL (3.8-10.6); WBC (Perox) 18.95
[2016-07-10] MEDS: PANTOPRAZOLE 40 MG TABLET PO SCH (06:30)
[2016-07-10 06:32] LABS: Alkaline Phosphatase 82 U/L (38-126); Anion Gap 12 mmol/L; Blood Urea Nitrogen 46 mg/dL (9-20); Calcium 8.8 mg/dL (8.4-10.2); Carbon Dioxide 27 mmol/L (22-30); Chloride 100 mmol/L (98-107); Glucose 107 mg/dL (74-99); Non-African American GFR(MDRD) 57 (>60 ml/min/1.73 sqM); Potassium 4.2 mmol/L (3.5-5.1); Sodium 139 mmol/L (137-145); Total Bilirubin 1.8 mg/dL (0.2-1.3); Total Protein 5.6 g/dL (6.3-8.2)
[2016-07-10 06:44] LABS: ALT 1057 U/L (21-72); AST 889 U/L (17-59)
[2016-07-10 08:11] VITALS: TEMP 96.9
[2016-07-10] MEDS ORDERED: SODIUM CHLORIDE 0.9% 500 ML IV ONE (09:20)
[2016-07-10] MEDS: guaiFENesin 600 MG TABLET.ER PO SCH (09:43)
[2016-07-10] MEDS: ASPIRIN 325 MG TAB PO SCH (09:43)
[2016-07-10] MEDS ORDERED: SODIUM CHLORIDE 0.9% 250 ML IV ONE ×2 (10:40→12:23)
[2016-07-10 11:07] LABS: Hepatitis B Surface Ag Index 0.06
[2016-07-10 11:12] LABS: Hepatitis B Core IgM Index 0.02
[2016-07-10 11:24] LABS: Hepatitis C Virus IgG Index 0.01
[2016-07-10 11:40] LABS: Hepatitis C Virus IgG Ab Negative (Negative)
--- NOTE | 2016-07-10 11:51 | P.PN ---
Subjective This is a 61-year-old male patient was having some shortness of breath approximately 1-2 weeks back. He reported exertional dyspnea. No orthopnea. No paroxysmal nocturnal dyspnea. He was having some limited cough and chest congestion. No chills. No fever. No pleurisy. No hemoptysis. The patient was seen outpatient clinics and he was given a ten-day course of Levaquin, prednisone burst taper and Ventolin. The patient was unable to complete a prednisone burst taper due to side effects. He did however take around 5 day worth of Levaquin. In the hospital the patient was seen in the emergency department initially and he was found to have some borderline elevation of d- dimer is at 3.93. CAT scan of the chest was done and it showed no evidence of pulmonary embolism. There was small to moderate-sized pleural effusions and septal lines and interstitial thickenings with some limited groundglass changes in lung bases bilaterally which raises the suspicion for congestion heart failure. In fact the patient was further worked up by an echocardiogram and he was found to have significant cardiomyopathy with an ejection fraction of less than 20%, severe aortic stenosis with a peak aortic valve gradient of 64 mmHg. There was also mild mitral regurgitation and mild chest cuspid regurgitation without any significant pericardial effusion. Based on all this, the patient was started on diuretics and he is currently on Lasix 20 mg IV push every 12 hours. He is feeling better. No chest pain. No swelling in lower extremities. No syncope. Troponins are positive and the levels are 0.6, 0.6 and 0.5 respectively. BNP level at a time of admission was above 14,000. Renal function is within normal limits. the patient is seen again today 07/09/2016 in the selective care unit. He is awake and alert in no acute distress. His only complaint is that of continued dyspnea on exertion. He is currently in a negative balance. He is maintaining good O2 saturations in the upper 90s on room air. He denies any chest pain, palpitations lightheadedness or dizziness. Cardiology is planning for possible cardiac catheterization on Monday. On 07/10/2016, the patient is resting comfortably in bed. No respiratory difficulties. He is on room air oxygen. No cough or sputum production. No chest pain. The patient has been diuresed adequately. The patient is being considered for cardiac catheterization on Monday. Objective - Vital Signs Vital signs: Vital Signs Temp 96.9 F L 07/10/16 08:00 Pulse 82 07/10/16 11:19 Resp 16 07/10/16 08:00 BP 86/56 07/10/16 11:19 Pulse Ox 95 07/10/16 10:42 Intake & Output 07/09/16 07/10/16 07/10/16 18:59 06:59 18:59 Intake Total 680 250 Output Total 250 500 250 Balance 430 -500 0 Weight 93.8 kg Intake: Oral 680 250 Output: Urine 250 500 250 Other: Voiding Method Toilet Toilet Toilet Urinal Urinal Urinal - Exam Head exam was generally normal. There was no scleral icterus or corneal arcus. Mucous membranes were moist.Neck was supple and without jugular venous distension, thyromegaly, or carotid bruits. Carotids were easily palpable bilaterally. There was no adenopathy. Lung sounds are diminished bilaterally especially in lung bases. No crackles. No wheezes. No rhonchi. Heart sounds are regular and there is a harsh systolic ejection murmur grade 4/6 heard throughout the precordium.Abdominal exam revealed normal bowel sounds. The abdomen was soft, non-tender, and without masses, organomegaly, or appreciable enlargement of the abdominal aorta.Examination of the extremities revealed easily palpable radial, femoral and pedal pulses. There was no cyanosis, clubbing or edema. - Labs CBC & Chem 7: 07/10/16 05:45 07/10/16 05:45 Labs: Abnormal Lab Results - Last 24 Hours (Table) 07/10/16 07/10/16 Range/Units 05:45 05:45 WBC 18.3 H (3.8-10.6) k/uL RBC 4.21 L (4.30-5.90) m/uL Hgb 12.8 L (13.0-17.5) gm/dL Neutrophils # 15.0 H (1.3-7.7) k/uL Monocytes # 1.1 H (0-1.0) k/uL BUN 46 H (9-20) mg/dL Creatinine 1.27 H (0.66-1.25) mg/dL Glucose 107 H (74-99) mg/dL Total Bilirubin 1.8 H (0.2-1.3) mg/dL AST 889 H (17-59) U/L ALT 1057 H (21-72) U/L Total Protein 5.6 L (6.3-8.2) g/dL Albumin 2.7 L (3.5-5.0) g/dL Microbiology - Last 24 Hours (Table) 07/08/16 17:18 Urine Culture - Final Urine,Clean Catch Assessment and Plan Plan: Assessment 1 acute CHF, systolic dysfunction, with an ejection fraction of less than 20% on echocardiogram and evidence of severe aortic stenosis. CT angios the chest shows no evidence of pneumonia and there is bilateral pleural effusion and hazy groundglass infiltrates in lung bases, typical of CHF 2 severe aortic stenosis 3 acute non-ST elevation myocardial infarction [place] positive troponin leaks 4 leukocytosis, mild, likely reactive due to steroid use, improving 5 impaired hearing 6 testicular cancer status post right orchiectomy followed by chemotherapy currently inactive in stable 7 prerenal azotemia secondary to diuresis Plan No need for antibiotics. No need for systemic steroids. Stop the Lasix. Ablate the patient the hallway. Monitor renal function. Cardiac catheterization by Monday per cardiology.
--- NOTE | 2016-07-10 12:26 | P.PN ---
Subjective Principal diagnosis: CHF/severe aortic stenosis This is a pleasant 61-year-old gentleman with no significant past medical history who presented to the emergency room with progressive dyspnea. The patient was diagnosed with congestive heart failure exacerbation. He underwent an echocardiogram which showed severely impaired LV function with an ejection fraction of 20% with evidence of severe aortic stenosis and mean gradient of more than 40 mmHg. The patient was started on Lasix IV and he was diuresed very well. Clinically he is feeling better. The shortness of breath has improved. He has no orthopnea. The physical examination showed no crackles. The blood pressure has been marginally low and yesterday I stopped the Coreg and decrease the dose of Lasix. The blood pressure continues to be low today and the Lasix was stopped. As a matter of fact he received a bolus of 750 mL of saline for the blood pressure. The family would like the patient to be transferred to [facility]. For the time being, I am going to transfer the patient to the intensive care unit. I will start him on a small dose of Levophed. We'll continue following up with him till he will be transferred. Objective - Vital Signs Vital signs: Vital Signs Temp 96.9 F L 07/10/16 08:00 Pulse 82 07/10/16 11:19 Resp 16 07/10/16 08:00 BP 86/56 07/10/16 11:19 Pulse Ox 95 07/10/16 10:42 Intake & Output 07/09/16 07/10/16 07/10/16 18:59 06:59 18:59 Intake Total 680 250 Output Total 250 500 250 Balance 430 -500 0 Weight 93.8 kg Intake: Oral 680 250 Output: Urine 250 500 250 Other: Voiding Method Toilet Toilet Toilet Urinal Urinal Urinal - Constitutional General appearance: Present: no acute distress - Respiratory Respiratory: bilateral: CTA - Cardiovascular Rhythm: regular Heart sounds: normal: S1, S2 Abnormal Heart Sounds: Present: systolic murmur - Labs CBC & Chem 7: 07/10/16 05:45 07/10/16 05:45 Labs: Abnormal Lab Results - Last 24 Hours (Table) 07/10/16 07/10/16 Range/Units 05:45 05:45 WBC 18.3 H (3.8-10.6) k/uL RBC 4.21 L (4.30-5.90) m/uL Hgb 12.8 L (13.0-17.5) gm/dL Neutrophils # 15.0 H (1.3-7.7) k/uL Monocytes # 1.1 H (0-1.0) k/uL BUN 46 H (9-20) mg/dL Creatinine 1.27 H (0.66-1.25) mg/dL Glucose 107 H (74-99) mg/dL Total Bilirubin 1.8 H (0.2-1.3) mg/dL AST 889 H (17-59) U/L ALT 1057 H (21-72) U/L Total Protein 5.6 L (6.3-8.2) g/dL Albumin 2.7 L (3.5-5.0) g/dL Microbiology - Last 24 Hours (Table) 07/08/16 17:18 Urine Culture - Final Urine,Clean Catch Assessment and Plan Plan: Assessment Acute respiratory failure Congestive heart failure exacerbation secondary to systolic dysfunction Severe cardiomyopathy unknown if it's ischemic or nonischemic Severe aortic stenosis Marginally low blood pressure Plan IV fluids Vasopressors ICU admission Follow-up with the patient
[2016-07-10 13:04] LABS: Glucose,Whole Blood 129 mg/dL (75-99)
[2016-07-10] MEDS: MULTIVITAMINS, THERA 1 EACH TAB PO SCH (13:13)
[2016-07-10] MEDS ORDERED: NOREPINEPHRINE 4 MG in SODIUM CHLORIDE 0.9% 250 ML IV SCH (13:15)
[2016-07-10] MEDS ORDERED: SODIUM CHLORIDE 0.9% 1,000 ML IV SCH (13:45)
[2016-07-10 14:28] VITALS: BP 91/76; PULSE 84; RESP 39
--- NOTE | 2016-07-10 17:15 | PN ---
INTERVAL HISTORY: Patient continues to be hemodynamically stable. No major events reported by nursing staff except for low blood pressure, but not greater than 68 all the time and maintaining around 65. Patient is denying chest pain, shortness breath, nausea, vomiting, abdominal pain, dizziness, lightheadedness or blurry vision, said that been ambulating in the ken all day long today. PHYSICAL EXAMINATION: VITAL SIGNS: 97.7, 82, 16, blood pressure 88/66 and saturation is 95% on room air. LUNGS: Diminished bilaterally. HEART: Normal S1, S2. ABDOMEN: Soft. No tenderness. Positive bowel sounds in all 4 quadrants. LOWER EXTREMITIES: No edema. PSYCH: Alert and oriented x3. IMAGING AND LABS: White blood count has decreased since yesterday. Liver function tests have doubled since yesterday and kidney function at baseline. ASSESSMENT AND PLAN: 1. Acute congestive heart failure exacerbation with ejection fraction of 20%. Patient has received excessive dose of diuresis and currently becoming intravascularly depleted. Patient with significant aortic stenosis and I would like to give the patient 500 mL bolus, which was done and showed no improvement in the blood pressure. I repeated 250 mL and that resulted similar blood pressure. I discussed the case with Dr. Gonzales at the bedside, who agreed to discontinuing Lasix at this point. Coreg was discontinued yesterday and patient currently on fluid boluses regimen. We will continue monitoring his hemodynamics and follow up on his vital signs closely. Patient currently on aspirin only and Dr. Gonzales is aware and he would like to follow up closely. 2. Elevated liver function tests, worsening today, likely related to shock liver and hypotension. I would like to continue with fluid boluses, check an acute hepatitis panel and discontinue Lasix. Repeat liver function tests in the morning. 3. Leukocytosis, likely reactive, currently improved. Will continue monitoring. 4. Severe aortic stenosis with gradient greater than 40 and ischemic cardiomyopathy. Discussed with Dr. Gonzales, who recommended cardiac catheterization and transesophageal echocardiography, which can be done over the next 48 hours, based on the stability of the patient and kidney function and that will determine need for aortic valve repair and coronary artery bypass graft if indicated for his possible ischemic cardiomyopathy. 5. Prognosis is guarded.
--- NOTE | 2016-07-11 18:32 | DS ---
DATE OF ADMISSION: 07/07/2016 DATE OF DISCHARGE: 07/10/2016 ADMITTING DIAGNOSIS(ES): 1. Congestive heart failure exacerbation. 2. Severe aortic stenosis. DISCHARGE DIAGNOSIS(ES): 1. Congestive heart failure exacerbation . 2. Severe aortic stenosis. HISTORY OF PRESENT ILLNESS/ HOSPITAL COURSE: This is a 60 -year-old male who presented to the hospital with worsening shortness of breath. The patient was found to have congestive heart failure with ejection fraction 20% complicated with aortic stenosis with mean gradient greater than 40. The patient was evaluated by cardiology, who recommended sterilizing the patient first and then cardiac catheterization to rule out any underlying ischemic process for his low ejection fraction. The patient stabilized that his blood pressure dropped and so aggressive diuresis and was resuscitated with fluid. Blood pressure medications were discontinued. Plan discussed with the patient and with Dr. Gonzales. Discussed ( ) with the family who requested the patient to be transferred to [facility]. At this time, I have discussed with the accepting physician at [facility] current medical condition, diagnosis and prognosis and he accepted the patient and the patient would be admitted to [facility] Intensive Care Unit and will be transferred by ground transportation today. Prognosis still guarded.
== END 2016-07-10 15:15 | disposition short-term general hospital (02) | DRG 280 ==
LOC: EC 06:46 → 6SEL 10:13 → 6ICU 07-10 12:48
PROVIDERS: ADMIT Internal Medicine; ATTEND Internal Medicine
DX: I50.23 Acute on chronic systolic (congestive) heart failure (principal); E43 Unspecified severe protein-calorie malnutrition; I21.4 Non-ST elevation (NSTEMI) myocardial infarction; J96.00 Acute respiratory failure, unspecified whether with hypoxia or hypercapnia; R64 Cachexia; K72.00 Acute and subacute hepatic failure without coma; I08.3 Combined rheumatic disorders of mitral, aortic and tricuspid valves; H91.93 Unspecified hearing loss, bilateral; I25.5 Ischemic cardiomyopathy; T38.0X5A Adverse effect of glucocorticoids and synthetic analogues, initial encounter; T50.2X5A Adverse effect of carbonic-anhydrase inhibitors, benzothiadiazides and other diuretics, initial encounter; Z79.82 Long term (current) use of aspirin; Z80.0 Family history of malignant neoplasm of digestive organs; Z82.3 Family history of stroke; Z85.47 Personal history of malignant neoplasm of testis; Z87.891 Personal history of nicotine dependence; Z90.79 Acquired absence of other genital organ(s); Z92.3 Personal history of irradiation; Z79.899 Other long term (current) drug therapy
CPT/HCPCS: 36415; 71020; 71275; 80053; 80074; 81001; 82550; 82553; 83605; 83735; 83880; 84100; 84484; 85025; 85379; 85610; 85730; 87040; 87070; 87086; 87205; 93005; 93306; 96361; 96365; 96366; 96376; 99291

== ENCOUNTER 2016-12-04 18:44 | Emergency (ER) | payer BC ==
[2016-12-04] MEDS ORDERED: SODIUM CHLORIDE 0.9% 1,000 ML IV STA (19:05)
--- NOTE | 2016-12-04 19:08 | ED ---
Dizziness HPI - General Chief Complaint: Syncope Stated Complaint: fall head injury Time Seen by Provider: 12/04/16 18:56 Source: patient, RN notes reviewed, old records reviewed Mode of arrival: wheelchair Limitations: no limitations - History of Present Illness Initial Comments: Is a 61-year-old male presents emergency Department chief complaint of a syncopal episode which caused him to fall and hit his head on the concrete. Patient reports his laceration over the back of the scalp. Patient reports he went from a sitting to standing position and was too quickly, felt lightheaded and passed out. Patient reports that he woke up on the ground. Patient states that he's had no nausea or vomiting. He reports that he has a history of cardiac valve replacement, and this was done 3 months ago. He is on blood thinners. Patient reports that he has not chest pain, shortness of breath or any other associated symptoms. He did go on a very long bike ride, 12 miles earlier today. He reports that was earlier today and he was trying to stay hydrated afterwards. The size laceration with head patient denies any other physical symptoms including headache, chest pain, short breath, nausea, vomiting , abdominal pain, or any other injuries related to the fall. - Related Data Home Medications Medication Instructions Recorded Confirmed Multivitamin [Men's Multi-Vitamin] 1 tab PO DAILY 07/07/16 12/04/16 Aspirin EC [Ecotrin Low Dose] 81 mg PO DAILY 12/04/16 12/04/16 Carvedilol [Coreg] 3.125 mg PO BID 12/04/16 12/04/16 Chlorthalidone 12.5 mg PO DAILY 12/04/16 12/04/16 Clopidogrel Bisulfate [Plavix] 75 mg PO DAILY 12/04/16 12/04/16 Ubidecarenone [Co Q-10] 100 mg PO DAILY 12/04/16 12/04/16 Allergies Allergy/AdvReac Type Severity Reaction Status Date / Time No Known Allergies Allergy Verified 12/04/16 19:41 Review of Systems ROS Statement: Those systems with pertinent positive or pertinent negative responses have been documented in the HPI. ROS Other: All systems not noted in ROS Statement are negative. Past Medical History Past Medical History: Heart Failure Additional Past Medical History / Comment(s): Aortic stenosis,systolic heart failure. History of Any Multi-Drug Resistant Organisms: None Reported Past Surgical History: Appendectomy Additional Past Surgical History / Comment(s): right orchiectomy 2001, 2015 colonoscopy-normal leg. Past Anesthesia/Blood Transfusion Reactions: No Reported Reaction Past Psychological History: No Psychological Hx Reported Smoking Status: Former smoker Past Alcohol Use History: Daily Past Drug Use History: None Reported - Past Family History Father Family Medical History: No Reported History Additional Family Medical History / Comment(s): Father is 81 yrs old and healthy. Mother Family Medical History: Cancer Additional Family Medical History / Comment(s): Mother at age 72 from a CVA hemorrhagic with history of breast cancer. Brother(s) Additional Family Medical History / Comment(s): Patient has 2 brothers and one has history of lung cancer and 1 of colon cancer. Sister(s) Additional Family Medical History / Comment(s): Patient has 1 sister with no major medical problems. Patient has one son and one daughter with no major medical problems. General Exam - General Exam Comments Initial Comments: This is a 61-year-old male. No acute distress. Limitations: no limitations General appearance: alert, in no apparent distress Head exam: Present: atraumatic, normocephalic. Absent: normal inspection ( Patient has a 3 cm laceration over the posterior scalp.) Eye exam: Present: normal appearance, PERRL, EOMI. Absent: scleral icterus, conjunctival injection, periorbital swelling ENT exam: Present: normal exam, mucous membranes moist Neck exam: Present: normal inspection. Absent: tenderness, meningismus, lymphadenopathy Respiratory exam: Present: normal lung sounds bilaterally Cardiovascular Exam: Present: regular rate, normal rhythm, normal heart sounds. Absent: systolic murmur, diastolic murmur, rubs, gallop, clicks GI/Abdominal exam: Present: soft, normal bowel sounds, hyperactive bowel sounds. Absent: distended, tenderness, guarding, rebound, rigid Extremities exam: Present: normal inspection, full ROM, normal capillary refill. Absent: tenderness, pedal edema, joint swelling, calf tenderness Back exam: Present: normal inspection Neurological exam: Present: alert, oriented X3, CN II-XII intact Expanded Patient oriented to: Present: person, place, time Speech: Present: fluid speech Cranial nerves: EOM's Intact: Normal, Gag Reflex: Normal, Tongue Deviation: Normal, Nystagmus: Normal, Facial Sensation: Normal Cerebellar function: Finger to Nose: Normal Upper motor neuron: Pronator Drift: Normal Sensory exam: Upper Extremity Light Touch: Normal, Lower Extremity Light Touch: Normal Motor strength exam: RUE: 5, LUE: 5, RLE: 5, LLE: 5 Eye Response: (4) open spontaneously Motor Response: (6) obeys commands Verbal Response: (5) oriented Karin Total: 15 Psychiatric exam: Present: normal affect, normal mood Skin exam: Present: warm, dry, intact, normal color. Absent: rash Course Vital Signs 12/04/16 12/04/16 12/04/16 18:45 20:26 21:23 Temperature 96.4 F L 98.4 F Pulse Rate 69 67 87 Respiratory 20 16 16 Rate Blood Pressure 101/59 97/58 116/87 O2 Sat by Pulse 98 94 L 98 Oximetry Procedures - Laceration Laceration #1 Site: scalp (posterior ) Size (cm): 2 Description: linear Depth: simple, single layer Anesthetic Used: lidocaine 1% Anesthesia Technique: local infiltration Amount (mls): 3 Pre-repair: wound explored, irrigated extensively Type of Sutures: vicryl, other (elizabeth) Size of Sutures: 6-0 Number of Sutures: 1 (1 figure 8 stitch to ligate vessel, 2 elizabeth to close wound) Patient Tolerated Procedure: well, no complications Medical Decision Making - Medical Decision Making Is a 61-year-old male presents emergency Department chief complaint of a syncopal episode which caused him to fall and hit his head on the concrete. Patient reports his laceration over the back of the scalp. Patient reports he went from a sitting to standing position and was too quickly, felt lightheaded and passed out. Patient reports that he woke up on the ground. Patient states that he's had no nausea or vomiting. Patient is on Plavix, CT brain obtained and negative for any acute intracranial process. Patient Labwork and EKG were negative, for any significant abnormalities. Patient did have a mildly elevated D-Dimer. Patient has no chest pain, shortness of breath, and vital signs do not indicate PE. Patient D dimer likely positive due to 12 mile bike ride earlier today. Patient informed of this and elects to not have CT chest, and probablity of being on plavix with PE is very minute. Patient was given 2 elizabeth and 1 absorbable suture to ligate a artery on the scalp. Patient advised to monitor for nay infection. Patient likely vasovagal episode due to dehydration from long bike ride, and advised to remain hydrated and change positions slowly. Patient has appointment on with PCP. - Lab Data Result diagrams: 12/04/16 19:20 12/04/16 19:20 Lab Results 12/04/16 12/04/16 12/04/16 Range/Units 19:20 19:20 19:20 WBC 9.1 (3.8-10.6) k/uL RBC 4.71 (4.30-5.90) m/uL Hgb 13.7 (13.0-17.5) gm/dL Hct 41.3 (39.0-53.0) % MCV 87.7 (80.0-100.0) fL MCH 29.0 (25.0-35.0) pg MCHC 33.1 (31.0-37.0) g/dL RDW 19.5 H (11.5-15.5) % Plt Count 246 (150-450) k/uL Neutrophils % 72 % Lymphocytes % 17 % Monocytes % 6 % Eosinophils % 2 % Basophils % 1 % Neutrophils # 6.5 (1.3-7.7) k/uL Lymphocytes # 1.6 (1.0-4.8) k/uL Monocytes # 0.5 (0-1.0) k/uL Eosinophils # 0.2 (0-0.7) k/uL Basophils # 0.0 (0-0.2) k/uL Anisocytosis Slight Microcytosis Slight PT (9.0-12.0) sec INR (<1.2) APTT (22.0-30.0) sec D-Dimer (<0.60) mg/L FEU Sodium 139 (137-145) mmol/L Potassium 4.1 (3.5-5.1) mmol/L Chloride 102 (98-107) mmol/L Carbon Dioxide 27 (22-30) mmol/L Anion Gap 10 mmol/L BUN 22 H (9-20) mg/dL Creatinine 0.84 (0.66-1.25) mg/dL Est GFR (MDRD) Af Amer >60 (>60 ml/min/1.73 sqM) Est GFR (MDRD) Non-Af >60 (>60 ml/min/1.73 sqM) Glucose 88 (74-99) mg/dL Calcium 9.6 (8.4-10.2) mg/dL Magnesium 1.8 (1.6-2.3) mg/dL Total Bilirubin 0.5 (0.2-1.3) mg/dL AST 31 (17-59) U/L ALT 29 (21-72) U/L Alkaline Phosphatase 65 (38-126) U/L Total Creatine Kinase 68 (55-170) U/L CK-MB (CK-2) 1.5 (0.0-2.4) ng/mL CK-MB (CK-2) Rel Index 2.2 Troponin I <0.012 (0.000-0.034) ng/mL Total Protein 7.2 (6.3-8.2) g/dL Albumin 3.8 (3.5-5.0) g/dL Urine Color Urine Appearance (Clear) Urine pH (5.0-8.0) Ur Specific [place] (1.001-1.035) Urine Protein (Negative) Urine Glucose (UA) (Negative) Urine Ketones (Negative) Urine Blood (Negative) Urine Nitrite (Negative) Urine Bilirubin (Negative) Urine Urobilinogen (<2.0) mg/dL Ur Leukocyte Esterase (Negative) 12/04/16 12/04/16 Range/Units 19:20 20:00 WBC (3.8-10.6) k/uL RBC (4.30-5.90) m/uL Hgb (13.0-17.5) gm/dL Hct (39.0-53.0) % MCV (80.0-100.0) fL MCH (25.0-35.0) pg MCHC (31.0-37.0) g/dL RDW (11.5-15.5) % Plt Count (150-450) k/uL Neutrophils % % Lymphocytes % % Monocytes % % Eosinophils % % Basophils % % Neutrophils # (1.3-7.7) k/uL Lymphocytes # (1.0-4.8) k/uL Monocytes # (0-1.0) k/uL Eosinophils # (0-0.7) k/uL Basophils # (0-0.2) k/uL Anisocytosis Microcytosis PT 10.8 (9.0-12.0) sec INR 1.1 (<1.2) APTT 23.2 (22.0-30.0) sec D-Dimer 0.87 H (<0.60) mg/L FEU Sodium (137-145) mmol/L Potassium (3.5-5.1) mmol/L Chloride (98-107) mmol/L Carbon Dioxide (22-30) mmol/L Anion Gap mmol/L BUN (9-20) mg/dL Creatinine (0.66-1.25) mg/dL Est GFR (MDRD) Af Amer (>60 ml/min/1.73 sqM) Est GFR (MDRD) Non-Af (>60 ml/min/1.73 sqM) Glucose (74-99) mg/dL Calcium (8.4-10.2) mg/dL Magnesium (1.6-2.3) mg/dL Total Bilirubin (0.2-1.3) mg/dL AST (17-59) U/L ALT (21-72) U/L Alkaline Phosphatase (38-126) U/L Total Creatine Kinase (55-170) U/L CK-MB (CK-2) (0.0-2.4) ng/mL CK-MB (CK-2) Rel Index Troponin I (0.000-0.034) ng/mL Total Protein (6.3-8.2) g/dL Albumin (3.5-5.0) g/dL Urine Color Yellow Urine Appearance Clear (Clear) Urine pH 6.5 (5.0-8.0) Ur Specific [place] 1.015 (1.001-1.035) Urine Protein Negative (Negative) Urine Glucose (UA) Negative (Negative) Urine Ketones Negative (Negative) Urine Blood Negative (Negative) Urine Nitrite Negative (Negative) Urine Bilirubin Negative (Negative) Urine Urobilinogen <2.0 (<2.0) mg/dL Ur Leukocyte Esterase Negative (Negative) 12/04/16 20:04 EKG shows sinus rhythm with first-degree AV block. Otherwise normal EKG. Ventricular rate of 66 beats.. O2 10 ms. QRS duration 100 ms. QT QTc is 420/448 ms. No evidence of ST elevation or T-wave inversion. No ventricular arrhythmias. - Radiology Data Radiology results: report reviewed There is a small superficial extra burial hematoma on the posterior aspect of the head. There is a new aortic valve replacement. Otherwise no acute cardiopulmonary process. Disposition Clinical Impression: Syncope, Head injury, Scalp laceration Disposition: HOME SELF-CARE Condition: Good Instructions: Syncope (ED), Head Injury (ED), Staple Care (ED) Additional Instructions: Please return to the emergency room in 7-10 days to have elizabeth removed. Please leave wound covered for the first 24-48 hours and then leave open to air after that time. Please use clean soap and water to clean the suture area to prevent scabbing over the top of your elizabeth. Please watch for any signs of infection which may include but not limited to increased pain, swelling, redness , fever or chills. Please return to the emergency room if any signs of infection do occur. Please return to the emergency room for any other concerns or complications. Referrals: Gal Gallardo MD [Primary Care Provider] - 1-2 days Time of Disposition: 20:53
[2016-12-04 19:28] LABS: Anisocytosis Slight; Basophils % (A) 1 %; CH 28.9; Eosinophils # (A) 0.2 k/uL (0-0.7); Eosinophils % (A) 2 %; HCT 41.3 % (39.0-53.0); HDW 2.69; HGB 13.7 gm/dL (13.0-17.5); Luc # (Auto) 0.29; Luc % (Auto) 3; Lymphocytes # (A) 1.6 k/uL (1.0-4.8); Lymphocytes % (A) 17 %; MCHC 33.1 g/dL (31.0-37.0); MCV 87.7 fL (80.0-100.0); Mean Platelet Volume 7.7; Microcytosis Slight; Monocytes # (A) 0.5 k/uL (0-1.0); Monocytes % (A) 6 %; Neutrophils # (A) 6.5 k/uL (1.3-7.7); Neutrophils % (A) 72 %; RBC 4.71 m/uL (4.30-5.90); RDW 19.5 % (11.5-15.5); WBC 9.1 k/uL (3.8-10.6); WBC (Perox) 9.09
[2016-12-04 19:39] LABS: ALT 29 U/L (21-72); AST 31 U/L (17-59); Alkaline Phosphatase 65 U/L (38-126); Anion Gap 10 mmol/L; Blood Urea Nitrogen 22 mg/dL (9-20); Calcium 9.6 mg/dL (8.4-10.2); Carbon Dioxide 27 mmol/L (22-30); Chloride 102 mmol/L (98-107); Glucose 88 mg/dL (74-99); Magnesium 1.8 mg/dL (1.6-2.3); Non-African American GFR(MDRD) >60 (>60 ml/min/1.73 sqM); Potassium 4.1 mmol/L (3.5-5.1); Sodium 139 mmol/L (137-145); Total Bilirubin 0.5 mg/dL (0.2-1.3); Total Protein 7.2 g/dL (6.3-8.2)
--- NOTE | 2016-12-04 19:44 | CT ---
EXAMINATION TYPE: CT brain wo con DATE OF EXAM: 12/04/2016 COMPARISON: NONE HISTORY: Fall with posterior head injury. CT DLP: 1116.00 mGycm Automated exposure control for dose reduction was used. FINDINGS: There is a small superficial extracalvarial wound along the posterior aspect of the skull. There is n o acute hemorrhage or major vessel territorial infarct within the brain. The ventricles are not dilat ed. There is a cavum septum pellucidum. There is no depressed calvarial fracture. Fourth ventricle is midline without mass effect. There is mild nasal septal deviation to the right. IMPRESSION: THERE IS A SMALL SUPERFICIAL EXTRACALVARIAL HEMATOMA ALONG THE POSTERIOR ASPECT OF THE HEAD.
--- NOTE | 2016-12-04 19:45 | XR ---
EXAMINATION TYPE: XR chest 2V DATE OF EXAM: 12/04/2016 COMPARISON: July 08, 2016. HISTORY: Shortness of breath. TECHNIQUE: Frontal and lateral views of the chest are obtained. FINDINGS: There is no focal air space opacity, pleural effusion, or pneumothorax seen. The cardiac silhouette size is within normal limits. The osseous structures are intact. There has been a new ao rtic valve replacement. IMPRESSION: No acute cardiopulmonary process.
[2016-12-04 19:46] LABS: INR 1.1 (<1.2); Partial Thromboplastin Time 23.2 sec (22.0-30.0); Prothrombin Time 10.8 sec (9.0-12.0)
[2016-12-04 19:47] LABS: Creatine Kinase 68 U/L (55-170)
[2016-12-04 20:00] LABS: Creatine Kinase MB 1.5 ng/mL (0.0-2.4); Troponin I <0.012 ng/mL (0.000-0.034)
[2016-12-04 20:21] LABS: Appearance,Urine Clear (Clear); Bilirubin,Urine Negative (Negative); Glucose,Urine (UA) Negative (Negative); Ketones,Urine Negative (Negative); Leukocyte Esterase,Urine Negative (Negative); Nitrite,Urine Negative (Negative); PH, Urine 6.5 (5.0-8.0); Protein,Urine Negative (Negative); Specific Gravity,Urine 1.015 (1.001-1.035); UA Billing (MACRO vs. MICRO) CHEM; Urobilinogen,Urine <2.0 mg/dL (<2.0)
[2016-12-04 20:55] VITALS: RESP 16
[2016-12-04 21:47] VITALS: BP 116/87; PULSE 87; TEMP 98.4
== END 2016-12-04 21:24 | disposition home or self-care (01) ==
LOC: EC 18:44
DX: S01.01XA Laceration without foreign body of scalp, initial encounter (principal); R55 Syncope and collapse; I44.0 Atrioventricular block, first degree; R79.1 Abnormal coagulation profile; R19.12 Hyperactive bowel sounds; I50.20 Unspecified systolic (congestive) heart failure; Z87.891 Personal history of nicotine dependence; Z79.02 Long term (current) use of antithrombotics/antiplatelets; Z79.82 Long term (current) use of aspirin; Z79.899 Other long term (current) drug therapy; Z86.79 Personal history of other diseases of the circulatory system; Z95.2 Presence of prosthetic heart valve; W01.198A Fall on same level from slipping, tripping and stumbling with subsequent striking against other object, initial encounter; Y93.55 Activity, bike riding
CPT/HCPCS: 12001; 36415; 70450; 71020; 80053; 81003; 82550; 82553; 83735; 84484; 85025; 85379; 85610; 85730; 93005; 96360; 99285

== ENCOUNTER 2020-08-19 14:46 | Observation (INO) | payer MEDICARE, OTHER ==
[2020-08-19] MEDS ORDERED: SODIUM CHLORIDE 0.9% 1,000 ML IV STA (15:27)
--- NOTE | 2020-08-19 15:31 | ED ---
General Adult HPI - General Chief complaint: Syncope Stated complaint: syncope Time Seen by Provider: 08/19/20 15:17 Source: patient, RN notes reviewed Mode of arrival: ambulatory Limitations: no limitations - History of Present Illness Initial comments: Patient is a pleasant 65-year-old male presenting to the emergency Department with complaints of syncopal episode. Episode occurred around 6 PM yesterday. Patient did have some diarrhea in the morning and was fatigued most the day. Patient was sitting at the table when the event occurred and last around 2 minutes. Following this patient was doing fine. EMS did arrive however patient refused transport. Patient states she was feeling fine at that time. Patient has felt fine today. Patient does have history of previous syncopal episodes, less than 10 throughout his life. Patient did have valve replacement done a few years ago and has had only 2 episodes since that time. No chest pain. No dyspnea. No confusion. No weakness. No headache. No abdominal pain. Patient is currently symptom-free. - Related Data Home Medications Medication Instructions Recorded Confirmed Multivitamin [Men's Multi-Vitamin] 1 tab PO DAILY 07/07/16 08/19/20 Aspirin EC [Ecotrin Low Dose] 81 mg PO DAILY 12/04/16 08/19/20 Chlorthalidone 12.5 mg PO DAILY 12/04/16 08/19/20 Cholecalciferol [Vitamin D3 (25 25 mcg PO DAILY 08/19/20 08/19/20 Mcg = 1000 Iu)] Allergies Allergy/AdvReac Type Severity Reaction Status Date / Time No Known Allergies Allergy Verified 08/19/20 16:16 Review of Systems ROS Statement: Those systems with pertinent positive or pertinent negative responses have been documented in the HPI. ROS Other: All systems not noted in ROS Statement are negative. Constitutional: Denies: fever Eyes: Denies: eye pain ENT: Denies: ear pain Respiratory: Denies: cough Cardiovascular: Denies: chest pain Endocrine: Denies: fatigue Gastrointestinal: Reports: as per HPI. Denies: abdominal pain, nausea, vomiting Genitourinary: Denies: urgency Musculoskeletal: Denies: back pain Skin: Denies: rash Neurological: Denies: headache, weakness, confusion Past Medical History Past Medical History: Heart Failure Additional Past Medical History / Comment(s): Aortic stenosis,systolic heart failure. History of Any Multi-Drug Resistant Organisms: None Reported Past Surgical History: Appendectomy Additional Past Surgical History / Comment(s): right orchiectomy 2001, 2015 colonoscopy-normal leg. Past Anesthesia/Blood Transfusion Reactions: No Reported Reaction Past Psychological History: No Psychological Hx Reported Smoking Status: Never smoker Past Alcohol Use History: Daily Past Drug Use History: None Reported - Past Family History Father Family Medical History: No Reported History Additional Family Medical History / Comment(s): Father is 81 yrs old and healthy. Mother Family Medical History: Cancer Additional Family Medical History / Comment(s): Mother at age 72 from a CVA hemorrhagic with history of breast cancer. Brother(s) Additional Family Medical History / Comment(s): Patient has 2 brothers and one has history of lung cancer and 1 of colon cancer. Sister(s) Additional Family Medical History / Comment(s): Patient has 1 sister with no major medical problems. Patient has one son and one daughter with no major medical problems. General Exam Limitations: no limitations General appearance: alert, in no apparent distress Head exam: Present: atraumatic Eye exam: Present: normal appearance, PERRL, EOMI ENT exam: Present: normal oropharynx Neck exam: Present: normal inspection Respiratory exam: Present: normal lung sounds bilaterally Cardiovascular Exam: Present: regular rate, normal rhythm Expanded Peripheral pulses: 2+: Radial (R), Radial (L), Dorsalis Pedis (R), Dorsalis Pedis (L) GI/Abdominal exam: Present: soft. Absent: tenderness Extremities exam: Present: normal inspection. Absent: pedal edema, calf tenderness Neurological exam: Present: alert, oriented X3, CN II-XII intact. Absent: motor sensory deficit Expanded Neurological exam: Present: protecting the airway Speech: Present: fluid speech Cranial nerves: EOM's Intact: Normal Sensory exam: Upper Extremity Light Touch: Normal, Lower Extremity Light Touch: Normal Motor strength exam: RUE: 5, LUE: 5, RLE: 5, LLE: 5 Eye Response: (4) open spontaneously Motor Response: (6) obeys commands Verbal Response: (5) oriented Psychiatric exam: Present: normal affect, normal mood Skin exam: Present: normal color Course Vital Signs 08/19/20 08/19/20 15:12 17:00 Temperature 98.4 F Pulse Rate 90 70 Respiratory 18 18 Rate Blood Pressure 113/66 108/77 O2 Sat by Pulse 97 98 Oximetry EKG Findings - EKG Comments: EKG Findings:: Sinus rhythm with rate of 87. For screening AV block with MN of 212. QRS 100 per QT 34. QTC 462. Normal axis. Inferior T wave inversion. No acute ST change. Medical Decision Making - Medical Decision Making Patient reevaluated and resting comfortably in bed. Patient does have T-wave inversion not present on previous EKG. Case discussed with Dr. Villalobos, who will admit covering for Dr. Gallardo, time. Cardiology will be placed on consult. - Lab Data Result diagrams: 08/19/20 15:54 08/19/20 15:54 Lab Results 08/19/20 08/19/20 08/19/20 Range/Units 15:54 15:54 15:54 WBC 9.7 (3.8-10.6) k/uL RBC 4.73 (4.30-5.90) m/uL Hgb 15.2 (13.0-17.5) gm/dL Hct 44.1 (39.0-53.0) % MCV 93.2 (80.0-100.0) fL MCH 32.0 (25.0-35.0) pg MCHC 34.4 (31.0-37.0) g/dL RDW 13.0 (11.5-15.5) % Plt Count 209 (150-450) k/uL MPV 9.0 Neutrophils % 69 % Lymphocytes % 19 % Monocytes % 8 % Eosinophils % 2 % Basophils % 0 % Neutrophils # 6.7 (1.3-7.7) k/uL Lymphocytes # 1.9 (1.0-4.8) k/uL Monocytes # 0.8 (0-1.0) k/uL Eosinophils # 0.1 (0-0.7) k/uL Basophils # 0.0 (0-0.2) k/uL PT 11.0 (9.0-12.0) sec INR 1.0 (<1.2) APTT 23.0 (22.0-30.0) sec Sodium 142 (137-145) mmol/L Potassium 3.5 (3.5-5.1) mmol/L Chloride 107 (98-107) mmol/L Carbon Dioxide 25 (22-30) mmol/L Anion Gap 10 mmol/L BUN 16 (9-20) mg/dL Creatinine 0.85 (0.66-1.25) mg/dL Est GFR (CKD-EPI)AfAm >90 (>60 ml/min/1.73 sqM) Est GFR (CKD-EPI)NonAf >90 (>60 ml/min/1.73 sqM) Glucose 161 H (74-99) mg/dL Calcium 10.0 (8.4-10.2) mg/dL Magnesium 1.9 (1.6-2.3) mg/dL Total Bilirubin 0.4 (0.2-1.3) mg/dL AST 27 (17-59) U/L ALT 18 (4-49) U/L Alkaline Phosphatase 58 (38-126) U/L Troponin I (0.000-0.034) ng/mL Total Protein 7.1 (6.3-8.2) g/dL Albumin 3.8 (3.5-5.0) g/dL 08/19/20 Range/Units 15:54 WBC (3.8-10.6) k/uL RBC (4.30-5.90) m/uL Hgb (13.0-17.5) gm/dL Hct (39.0-53.0) % MCV (80.0-100.0) fL MCH (25.0-35.0) pg MCHC (31.0-37.0) g/dL RDW (11.5-15.5) % Plt Count (150-450) k/uL MPV Neutrophils % % Lymphocytes % % Monocytes % % Eosinophils % % Basophils % % Neutrophils # (1.3-7.7) k/uL Lymphocytes # (1.0-4.8) k/uL Monocytes # (0-1.0) k/uL Eosinophils # (0-0.7) k/uL Basophils # (0-0.2) k/uL PT (9.0-12.0) sec INR (<1.2) APTT (22.0-30.0) sec Sodium (137-145) mmol/L Potassium (3.5-5.1) mmol/L Chloride (98-107) mmol/L Carbon Dioxide (22-30) mmol/L Anion Gap mmol/L BUN (9-20) mg/dL Creatinine (0.66-1.25) mg/dL Est GFR (CKD-EPI)AfAm (>60 ml/min/1.73 sqM) Est GFR (CKD-EPI)NonAf (>60 ml/min/1.73 sqM) Glucose (74-99) mg/dL Calcium (8.4-10.2) mg/dL Magnesium (1.6-2.3) mg/dL Total Bilirubin (0.2-1.3) mg/dL AST (17-59) U/L ALT (4-49) U/L Alkaline Phosphatase (38-126) U/L Troponin I <0.012 (0.000-0.034) ng/mL Total Protein (6.3-8.2) g/dL Albumin (3.5-5.0) g/dL - Radiology Data Radiology results: report reviewed (Computed tomography scan of the brain atrophy. No hemorrhage or shift. Some interval degeneration process on previous study.), image reviewed (Chest x-ray does show some new patch is or infiltrates.) Disposition Clinical Impression: Syncope Disposition: ADMITTED IP TO THIS HOSP Is patient prescribed a controlled substance at d/c from ED?: No Referrals: Gal Gallardo MD [Primary Care Provider] - 1-2 days Decision Time: 17:16
[2020-08-19 16:07] LABS: Basophils % (A) 0 %; Eosinophils # (A) 0.1 k/uL (0-0.7); Eosinophils % (A) 2 %; HCT 44.1 % (39.0-53.0); HGB 15.2 gm/dL (13.0-17.5); Lymphocytes # (A) 1.9 k/uL (1.0-4.8); Lymphocytes % (A) 19 %; MCHC 34.4 g/dL (31.0-37.0); MCV 93.2 fL (80.0-100.0); Monocytes # (A) 0.8 k/uL (0-1.0); Monocytes % (A) 8 %; Neutrophils # (A) 6.7 k/uL (1.3-7.7); Neutrophils % (A) 69 %; Platelet Count 209 k/uL (150-450); RBC 4.73 m/uL (4.30-5.90); WBC 9.7 k/uL (3.8-10.6)
[2020-08-19 16:16] LABS: ALT 18 U/L (4-49); AST 27 U/L (17-59); African American GFR (CKD) >90 (>60 ml/min/1.73 sqM); Albumin 3.8 g/dL (3.5-5.0); Alkaline Phosphatase 58 U/L (38-126); Anion Gap 10 mmol/L; Blood Urea Nitrogen 16 mg/dL (9-20); Carbon Dioxide 25 mmol/L (22-30); Chloride 107 mmol/L (98-107); Glucose 161 mg/dL (74-99); Magnesium 1.9 mg/dL (1.6-2.3); Non-African American GFR(CKD) >90 (>60 ml/min/1.73 sqM); Potassium 3.5 mmol/L (3.5-5.1); Sodium 142 mmol/L (137-145); Total Bilirubin 0.4 mg/dL (0.2-1.3); Total Protein 7.1 g/dL (6.3-8.2)
--- NOTE | 2020-08-19 16:19 | CT ---
EXAMINATION TYPE: CT brain wo con DATE OF EXAM: 08/19/2020 HISTORY: syncopal episode CT DLP: 1157.4 mGycm. Automated Exposure Control for Dose Reduction was Utilized. TECHNIQUE: CT scan of the head is performed without contrast. COMPARISON: CT brain December 04, 2016. FINDINGS: There is no acute intracranial hemorrhage or midline shift identified. There is moderate ventricular and sulcal prominence consistent with diffuse age-related cerebral atrophy. There is mod erate low-attenuation in the periventricular white matter consistent with chronic small vessel ischem ic change. The globes are intact and the visualized sinuses are clear. No suspicious opacification mastoid air cells bilaterally. IMPRESSION: No acute intracranial hemorrhage or midline shift. There is moderate diffuse cerebral a trophy and chronic small vessel ischemic change identified. Some interval degenerative progression n oted from 2017 study.
--- NOTE | 2020-08-19 16:22 | XR ---
EXAMINATION TYPE: XR chest 2V DATE OF EXAM: 08/19/2020 COMPARISON: Chest x-ray December 04, 2016 HISTORY: Syncope and weakness. TECHNIQUE: Frontal and lateral views of the chest are obtained. FINDINGS: There or chronic parenchymal changes bilaterally with elevated left hemidiaphragm. New pat jenae bibasilar opacities. No pleural effusion or pneumothorax seen bilaterally. The cardiac silhouett e size is enlarged with stent graft in the aortic root redemonstrated. Atherosclerotic change aortic knob. Underlying scoliotic curvature. IMPRESSION: Cardiomegaly and chronic changes with new patchy bibasilar atelectasis and/or infiltrat e.
[2020-08-19] MEDS ORDERED: NALOXONE 0.4 MG/ML 1 ML VIAL IV PRN (17:16)
[2020-08-19 17:27] LABS: Appearance,Urine Clear (Clear); Bilirubin,Urine Negative (Negative); Blood,Urine Negative (Negative); Color,Urine Yellow; Glucose,Urine (UA) Negative (Negative); Ketones,Urine Negative (Negative); Leukocyte Esterase,Urine Negative (Negative); Nitrite,Urine Negative (Negative); Protein,Urine Negative (Negative); Specific Gravity,Urine 1.019 (1.001-1.035); Urobilinogen,Urine <2.0 mg/dL (<2.0)
[2020-08-19] MEDS: HEPARIN SODIUM,PORCINE/PF 5,000 UNIT/0.5 ML SYRINGE SQ SCH (21:19)
[2020-08-20] MEDS: SODIUM CHLORIDE 0.9% 1,000 ML IV SCH ×2 (04:32→12:40)
[2020-08-20] MEDS ORDERED: CHLORTHALIDONE 25 MG TAB PO SCH (09:00)
[2020-08-20] MEDS: ASPIRIN 81 MG PO SCH (09:13)
[2020-08-20] MEDS: FAMOTIDINE 20 MG TAB PO SCH (09:13)
[2020-08-20] MEDS: MULTIVITAMINS, THERA 1 EACH TAB PO SCH (09:13)
[2020-08-20] MEDS: HEPARIN SODIUM,PORCINE/PF 5,000 UNIT/0.5 ML SYRINGE SQ SCH ×2 (09:13→20:21)
[2020-08-20] MEDS: CHOLECALCIFEROL 25 MCG (1000 IU) TABLET PO SCH (09:13)
--- NOTE | 2020-08-20 09:25 | P.CRDCN ---
History of Present Illness History of present illness: HISTORY OF PRESENTING ILLNESS This is a pleasant 65-year-old male past medical history significant for valvular heart disease status post TAVR 2017, hypertension, systolic heart failure, daily alcohol intake and former nicotine dependence. He follows in the office with Dr. Swift out [facility]. We have been asked to see in consultation for syncope. He states he woke up yesterday in his usual state of health. Shortly after waking up he had one episode of loose stool causing him to feel depleted and tired. He opted to stay home from running errands with his because he just felt exhausted. He rested for most of the day. In the evening him and his were grilling outside. He got up and got himself a beer. After returning he sat down and started feeling light headed like he was going to pass out. His was there and according to her he did pass out briefly. He denies feeling short of breath, palpitations, chest pain, nausea, vomiting or diaphoresis. He has had no further symptoms since arriving at the hospital. DIAGNOSTICS EKG reveals sinus mechanism with T-wave inversions noted in the inferior leads and mild ST depression inferiorly. Consistent with previous EKG from 2017. Telemetry tracings indicate and his mechanism with no acute arrhythmia or s ignificant pause. Chest xray negative for an acute cardiopulmonary process. CT of the brain is negative for an acute intracranial hemorrhage or midline shift with moderate diffuse cerebral atrophy and chronic small vessel ischemic changes. Laboratory reviewed, CBC unremarkable, sodium 142, potassium 3.5, creatinine 0.85, magnesium 1.9, cardiac enzymes negative 3. Current cardiac medications include aspirin 81 mg daily and chlorthalidone 12.5 mg daily. Most recent echocardiogram obtained in 2017 prior to valve replacement revealed severely impaired LV systolic function with ejection fraction less than 20%, severe aortic stenosis with a mean gradient of 46 mmHg, severely thickened mitral valve with mild mitral regurgitation and a mean gradient across the mitral valve with 2 mmHg and mild tricuspid regurgitation. REVIEW OF SYSTEMS At the time of my exam: CONSTITUTIONAL: Denies fever or chills. CARDIOVASCULAR: Denies chest pain, shortness of breath, orthopnea, PND or palpitations. RESPIRATORY: Denies cough. GASTROINTESTINAL: Denies abdominal pain, diarrhea, constipation, nausea or vom iting. MUSCULOSKELETAL: Denies myalgias. NEUROLOGIC: Denies numbness, tingling, headacbe or weakness. ENDOCRINE: Denies fatigue, weight change, polydipsia or polyurina. GENITOURINARY: Denies burning, hematuria or urgency with micturation. HEMATOLOGIC: Denies history of anemia or bleeding. PHYSICAL EXAMINATION Blood pressure 123/72 heart rate 81 afebrile and maintaining oxygen saturation on room air. CONSTITUTIONAL: No apparent distress. HEENT: Head is normocephalic. Pupils are equal, round. Sclerae anicteric. Mucous membranes of the mouth are moist. No JVD. No carotid bruit. CHEST EXAMINATION: Lungs are clear to auscultation. No chest wall tenderness is noted on palpation or with deep breathing. HEART EXAMINATION: Regular rate and rhythm. S1, S2 heard. Systolic ejection murmur at the base, no gallops or rub. ABDOMEN: Soft, nontender. Positive bowel sounds. EXTREMITIES: 2+ peripheral pulses, no lower extremity edema and no calf tenderness. NEUROLOGIC EXAMINATION: Patient is awake, alert and oriented x3. ASSESSMENT Syncope Diarrhea Valvular heart disease status post TAVR Hypertension PLAN An acute coronary event has been ruled out. Obtain 2D echocardiogram and doppler study to assess cardiac structure and function. Request records from his primary printed circuit board panels developer for comparison. Discontinue chlorthalidone. Check for orthostatic changes. Ongoing telemetry monitoring. Clinically sounds to be related to possible volume depletion from diarrhea and subsequent orthostatic hyotension. Further recommendations to follow based on clinical course. Thank you kindly for this consultation. Nurse Practitioner note has been reviewed, I agree with a documented findings and plan of care. Patient was seen and examined. Past Medical History Past Medical History: Heart Failure Additional Past Medical History / Comment(s): Aortic stenosis,systolic heart failure. testicular CA, Hypotension , syncope History of Any Multi-Drug Resistant Organisms: None Reported Past Surgical History: Appendectomy Additional Past Surgical History / Comment(s): right orchiectomy 2001, 2015 colonoscopy-normal leg. Past Anesthesia/Blood Transfusion Reactions: No Reported Reaction Past Psychological History: No Psychological Hx Reported Additional Psychological History / Comment(s): Pt resides with his spouse. He is independent. Smoking Status: Never smoker Past Alcohol Use History: Daily Additional Past Alcohol Use History / Comment(s): Pt was a smoker 2 packs per day for 15 years and quit 20 years ago. He denies any medical marijuana or marijuana or street drug use. He states he drinks 2 beers a day. 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 Past Drug Use History: None Reported - Past Family History Father Family Medical History: No Reported History Additional Family Medical History / Comment(s): Father is 81 yrs old and healthy. Mother Family Medical History: Cancer Additional Family Medical History / Comment(s): Mother at age 72 from a CVA hemorrhagic with history of breast cancer. Brother(s) Additional Family Medical History / Comment(s): Patient has 2 brothers and one has history of lung cancer and 1 of colon cancer. Sister(s) Additional Family Medical History / Comment(s): Patient has 1 sister with no major medical problems. Patient has one son and one daughter with no major medical problems. Medications and Allergies Home Medications Medication Instructions Recorded Confirmed Type Multivitamin [Men's Multi-Vitamin] 1 tab PO DAILY 07/07/16 08/19/20 History Aspirin EC [Ecotrin Low Dose] 81 mg PO DAILY 12/04/16 08/19/20 History Chlorthalidone 12.5 mg PO DAILY 12/04/16 08/19/20 History Cholecalciferol [Vitamin D3 (25 25 mcg PO DAILY 08/19/20 08/19/20 History Mcg = 1000 Iu)] Allergies Allergy/AdvReac Type Severity Reaction Status Date / Time No Known Allergies Allergy Verified 08/19/20 16:16 Physical Exam Vitals: Vital Signs Temp Pulse Pulse Resp BP BP Pulse Ox 08/20/20 07:08 97.9 F 81 14 123/72 97 08/20/20 02:30 98.0 F 69 18 95/59 96 08/20/20 02:00 70 16 08/19/20 20:42 97.9 F 70 16 138/84 97 08/19/20 20:00 18 08/19/20 19:23 81 18 135/94 100 08/19/20 17:00 70 18 108/77 98 08/19/20 15:12 98.4 F 90 18 113/66 97 Intake and Output 08/19/20 08/20/20 08/20/20 22:59 06:59 14:59 Intake Total 250 Balance 250 Intake: Oral 250 Other: Voiding Method Urinal Urinal # Voids 1 3 Weight 104.326 kg Results 08/19/20 15:54 08/19/20 15:54 Cardiac Enzymes 08/19/20 08/19/20 08/19/20 Range/Units 15:54 15:54 19:22 AST 27 (17-59) U/L Troponin I <0.012 <0.012 (0.000-0.034) ng/mL 08/19/20 Range/Units 23:18 AST (17-59) U/L Troponin I <0.012 (0.000-0.034) ng/mL Coagulation 08/19/20 Range/Units 15:54 PT 11.0 (9.0-12.0) sec APTT 23.0 (22.0-30.0) sec CBC 08/19/20 Range/Units 15:54 WBC 9.7 (3.8-10.6) k/uL RBC 4.73 (4.30-5.90) m/uL Hgb 15.2 (13.0-17.5) gm/dL Hct 44.1 (39.0-53.0) % Plt Count 209 (150-450) k/uL Comprehensive Metabolic Panel 08/19/20 Range/Units 15:54 Sodium 142 (137-145) mmol/L Potassium 3.5 (3.5-5.1) mmol/L Chloride 107 (98-107) mmol/L Carbon Dioxide 25 (22-30) mmol/L BUN 16 (9-20) mg/dL Creatinine 0.85 (0.66-1.25) mg/dL Glucose 161 H (74-99) mg/dL Calcium 10.0 (8.4-10.2) mg/dL AST 27 (17-59) U/L ALT 18 (4-49) U/L Alkaline Phosphatase 58 (38-126) U/L Total Protein 7.1 (6.3-8.2) g/dL Albumin 3.8 (3.5-5.0) g/dL Current Medications Generic Name Dose Route Start Last Admin Trade Name Freq PRN Reason Stop Dose Admin Aspirin 81 mg 08/20/20 09:00 Aspirin 81 Mg PO DAILY [facility] Chlorthalidone 12.5 mg 08/20/20 09:00 Chlorthalidone 25 Mg Tab PO DAILY [facility] Cholecalciferol 25 mcg 08/20/20 09:00 Cholecalciferol 25 Mcg (1000 Iu) Tablet PO DAILY [facility] Famotidine 20 mg 08/20/20 09:00 Famotidine 20 Mg Tab PO DAILY [facility] Heparin Sodium (Porcine) 5,000 unit 08/19/20 21:00 08/19/20 21:19 Heparin Sodium,Porcine/Pf 5,000 Unit/0.5 Ml Syringe SQ 5,000 unit Q12HR [facility] Administration Sodium Chloride 1,000 mls @ 20 mls/hr 08/19/20 17:30 08/20/20 04:32 Saline 0.9% IV Not Given .Q24H [facility] Multivitamins 1 each 08/20/20 09:00 Multivitamins, Thera 1 Each Tab PO DAILY [facility] Naloxone HCl 0.2 mg 08/19/20 17:16 Naloxone 0.4 Mg/Ml 1 Ml Vial IV Q2M PRN Opioid Reversal Intake and Output 08/19/20 08/20/20 08/20/20 22:59 06:59 14:59 Intake Total 250 Balance 250 Intake: Oral 250 Other: Voiding Method Urinal Urinal # Voids 1 3 Weight 104.326 kg 08/19/20 15:54 08/19/20 15:54
--- NOTE | 2020-08-20 12:06 | P.CNNES ---
History of Present Illness Consult date: 08/20/20 Requesting physician: Heather Wallace Reason for Consult: syncope rule out seizure History of Present Illness: This is a 65-year-old woman with medical history of hypertension, systolic heart failure, valvular heart disease status post TAVR 2017, daily alcohol intake, ex- tobacco use with complaints of syncopal episode on 08/18/2020. His (Sally) is at bedside who helps with some of the history. According to the patient he woke up on 08/18/2020 and he had one episode of loose stool and that as a result she was feeling tired and felt his body was fatigue. His noticed that he was exhausted as well. He rested most of the day. He said he was not hydrating himself most of the day. In the evening he drank one can of beer and was going to the next one. In the evening the patient and his grilling outside and he got up and felt off and stated his vision seems blurry so he sad down and all the sudden he passed out. Per the he had some shaking of the hands only but no jerking of extremities, eyes rolling back. The episode lasted about 2-3 minutes and he regained consciousness really fast per the . Patient denies tongue bite, urinary or bowel incontinence. He denies having fever that day. He denies chest pain or palpitation prior to the episode. He has similiar episode in 2017 and it was hot and was dehydrated and passed out and was told it was due to dehydration. He denies any history of seizure. He drinks 5 cans of beers/day and denies missing any days recently but according to even if he does not drink, no withdrawl seizures of Delerium Tremens. He is ex-tobacco use and was remote. Regarding his history, was normal, vaginal without complication that he was told. He denies family history of seizure. Some of the workup in the hospital consisted of: Initial vital signs: Blood pressure of 130/60, heart rate of 90, respiratory of 18, temperature of 98.4 Fahrenheit oral and pulse ox of 97% at room air. CT of the head is reported as no acute intracranial hemorrhage or midline shift. There is moderate diffuse cerebral atrophy and chronic small vessel ischemic change identified. Small interval degenerative progression noted from the 2017 study. EKG is reported as sinus rhythm with first-degree AV block. T wave abnormality. Consider inferior ischemia. Abnormal EKG. The CBC was reviewed and it looks normal. The basic metabolic panel was reviewed as well and that serum glucose 161, calcium was 10.0, magnesium 1.9, sodium of 142. Those were normal and the rest were reviewed and were normal Review of Systems Review of system: The 12 point system was reviewed and apparent positive and negative per HPI. Past Medical History Past Medical History: Heart Failure Additional Past Medical History / Comment(s): Aortic stenosis,systolic heart failure. testicular CA, Hypotension , syncope History of Any Multi-Drug Resistant Organisms: None Reported Past Surgical History: Appendectomy Additional Past Surgical History / Comment(s): right orchiectomy 2001, 2014 colonoscopy-normal leg. Past Anesthesia/Blood Transfusion Reactions: No Reported Reaction Past Psychological History: No Psychological Hx Reported Additional Psychological History / Comment(s): Pt resides with his spouse. He is independent. Smoking Status: Never smoker Past Alcohol Use History: Daily Additional Past Alcohol Use History / Comment(s): Pt was a smoker 2 packs per day for 15 years and quit 20 years ago. He denies any medical marijuana or marijuana or street drug use. He states he drinks 2 beers a day. 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 Past Drug Use History: None Reported - Past Family History Father Family Medical History: No Reported History Additional Family Medical History / Comment(s): Father is 81 yrs old and healthy. Mother Family Medical History: Cancer Additional Family Medical History / Comment(s): Mother at age 72 from a CVA hemorrhagic with history of breast cancer. Brother(s) Additional Family Medical History / Comment(s): Patient has 2 brothers and one has history of lung cancer and 1 of colon cancer. Sister(s) Additional Family Medical History / Comment(s): Patient has 1 sister with no major medical problems. Patient has one son and one daughter with no major medical problems. Medications and Allergies Home Medications Medication Instructions Recorded Confirmed Type Multivitamin [Men's Multi-Vitamin] 1 tab PO DAILY 07/07/16 08/19/20 History Aspirin EC [Ecotrin Low Dose] 81 mg PO DAILY 12/04/16 08/19/20 History Chlorthalidone 12.5 mg PO DAILY 12/04/16 08/19/20 History Cholecalciferol [Vitamin D3 (25 25 mcg PO DAILY 08/19/20 08/19/20 History Mcg = 1000 Iu)] Allergies Allergy/AdvReac Type Severity Reaction Status Date / Time No Known Allergies Allergy Verified 08/19/20 16:16 Physical Examination - Vital Signs Vital Signs: Vital Signs Temp Pulse Pulse Pulse Pulse Pulse Resp 08/20/20 10:19 77 86 64 08/20/20 07:08 97.9 F 81 14 08/20/20 02:30 98.0 F 69 18 08/20/20 02:00 70 16 08/19/20 20:42 97.9 F 70 16 08/19/20 20:00 18 08/19/20 19:23 81 18 08/19/20 17:00 70 18 08/19/20 15:12 98.4 F 90 18 BP BP BP BP BP Pulse Ox 08/20/20 10:19 123/85 112/77 117/75 08/20/20 07:08 123/72 97 08/20/20 02:30 95/59 96 08/20/20 02:00 08/19/20 20:42 138/84 97 08/19/20 20:00 08/19/20 19:23 135/94 100 08/19/20 17:00 108/77 98 08/19/20 15:12 113/66 97 Intake and Output 08/19/20 08/20/20 08/20/20 22:59 06:59 14:59 Intake Total 250 Balance 250 Intake: Oral 250 Other: Voiding Method Urinal Urinal # Voids 1 3 Weight 104.326 kg GENERAL: The patient is lying in bed and is not in acute distress. CHEST: The heart rate is regular rate rhythm. No murmurs to auscultation. No carotid bruit bilaterally. LUNG: Clear to auscultation bilaterally no wheezing noted throughout. Not labored breathing. ABDOMEN/GI: Bowel sounds present in all 4 quadrants. No tenderness to palpation throughout. NEUROLOGICAL: Higher mental function: The patient is awake, alert, oriented to self, place and time. Patient is following commands. No aphasia and no neglect. Cranial nerves: The pupils are round, equal and reactive to light and accommodation. Visual [place] are full to confrontation throughout. Extraocular movement is intact no nystagmus is noted. Facial sensation is normal to touch throughout. The facial strength is normal throughout. Hearing is moderately decreased bilaterally to hand rub. Tongue is midline and moved [id number] without any difficulty. No dysarthria is noted. Shoulder shrug is normal bilaterally. Motor: Gait is normal with normal arm swings. The strength is 5 over 5 thro ughout. Normal tone and bulk. Cerebellum: Normal finger to nose heel to chin bilaterally. Sensation: Sensation is normal to touch throughout. Reflexes (right/left): 2+ Plantars are downgoing bilaterally. Results Urinalysis is negative for urinary tract infection. SARS COV2 PCR is not detected - Laboratory Findings CBC and BMP: 08/19/20 15:54 08/19/20 15:54 Abnormal Lab Findings: Abnormal Labs 08/19/20 15:54 Glucose 161 H Assessment and Plan Assessment: Syncopal episodes seems due possibly due to hypovolemia (had loose stool that day and was not hydrating himself). Had similar episode in 2017 and was dehydrate. Does not seem seizure. Hypertension Systolic heart failure Daily alcohol intake X tobacco use Plan: CT of the head is reported as no acute intracranial hemorrhage or midline shift. There is moderate diffuse cerebral atrophy and chronic small vessel ischemic change identified. Small interval degenerative progression noted from the 2017 study. I ordered a routine EEG. I will not start the patient on an antiepileptic drug unless there is a blood program discharges or seizure on the EEG. I ordered MRI Brain (seizure protocol). Primary team ordered carotid duplex is pending Cardiology is on board and they ordered orthostatic vitals as well as 2-D echo which are pending Continue continuous cardiac monitoring Will defer the rest of medical management to the primary team. Thank you for the consult. Brain Aguilar MD Neuro-Hospitalist Time with Patient: Greater than 30
--- NOTE | 2020-08-20 12:07 | US ---
EXAMINATION TYPE: US carotid duplex BILAT DATE OF EXAM: 08/20/2020 COMPARISON: NONE CLINICAL HISTORY: syncope. syncope, no h/o stroke EXAM MEASUREMENTS: RIGHT: Peak Systolic Velocity (PSV) cm/sec ----- Right CCA: 72.1 ----- Right ICA: 63.9 ----- Right ECA: 90.9 ICA/CCA ratio: 0.8 RIGHT: End Diastole cm/sec ----- Right CCA: 19.5 ----- Right ICA: 32.6 ----- Right ECA: 13.5 LEFT: Peak Systolic Velocity (PSV) cm/sec ----- Left CCA: 65.7 ----- Left ICA: 69.4 ----- Left ECA: 91.9 ICA/CCA ratio: 1.0 LEFT: End Diastole cm/sec ----- Left CCA: 18.8 ----- Left ICA: 33.2 ----- Left ECA: 9.4 VERTEBRALS (direction of flow): Right Vertebral: Antegrade Left Vertebral: Antegrade Rhythm: Normal Mild homogeneous plaque with no significant stenosis seen grayscale, color Doppler, spectral Doppler imaging performed of the carotid arteries. Waveform analysis does not show significant stenosis of t he internal carotid arteries. IMPRESSION: No hemodynamic significant stenosis of the proximal internal carotid arteries by Doppler criteria, an indirect measurement of carotid stenosis Criteria for Assigning % of Stenosis / Diameter reduction (Estimation based on the indirect measurements of the internal carotid artery velocities (ICA PSV). 1. Normal (no stenosis)=ICA PSV < 125 cm/s: ratio < 2.0: ICA EDV<40 cm/s. 2. Less than 50% stenosis=ICA PSV < 125 cm/s: ratio < 2.0: ICA EDV<40 cm/s. 3. 50 to 69% stenosis=ICA PSV of 125 to 230 cm/s: ration 2.0 ? 4.0: ICA EDV 40-100 cm/s. 4. Greater than 70% stenosis to near occlusion= ICA PSV > 230 cm/s: ratio > 4.0: ICA EDV > 100 cm/s. 5. Near occlusion= ICA PSV velocities may be low or undetectable: variable ratio and ICA EDV. 6. Total occlusion=unable to detect flow.
--- NOTE | 2020-08-20 12:20 | P.HPIM ---
History of Present Illness H&P Date: 08/20/20 Chief Complaint: syncope HISTORY OF PRESENT ILLNESS This is a 65-year-old male. His primary care physician is Dr. Amor Gallardo. He has a past medical history of TAVR 2017, hypertension, chronic systolic heart failure, testicular cancer on the right diagnosed in 2001 status post surgical resection and chemotherapy, hard of hearing, varicose veins status post stripping, remote history of tobacco use, daily alcohol use. Patient's states that he was sitting in a chair outside on the patio and she looked at him and he was shaking with his eyes rolling back in his head and he passed out. She immediately called EMS and she was told that he had an irregular heartbeat. Patient has had few episodes of loose stool, feeling tired. He apparently has had syncopal episodes in the past with one occurring after aortic valve procedure. He had a workup done at that time and was told it was related to low blood pressure and dehydration. He has had this occur only a few times during his life. Patient came into [facility] emergency center for evaluation. He was found to be afebrile, heart rate 90, blood pressure 113/66, pulse ox 97% on room air. Orthostatic vital signs were negative. EKG was sinus rhythm with T-wave inversions noted in the inferior leads and mild ST depression inferiorly. Chest xray negative for an acute cardiopulmonary process. CT of the brain is negative for an acute intracranial hemorrhage or midline shift with moderate diffuse cerebral atrophy and chronic small vessel ischemic changes. CBC unremarkable, sodium 142, potassium 3.5, creatinine 0.85, magnesium 1.9, troponins negative 3. Patient was placed in the observation unit and consult requested with cardiology and neurology. Patient has been seen by neurology and EEG and MRI ordered. Carotid duplex revealed no hemodynamically significant stenosis. Patient has been seen by cardiology and echocardiogram has been order ed and chlorthalidone was discontinued. Records from his primary ecg technician were requested. REVIEW OF SYSTEMS Constitutional: No fever, no chills, no night sweats. No weight change. No weakness, fatigue or lethargy. No daytime sleepiness. EENT: No headache. No blurred vision or double vision, no loss of vision. No loss of Hearing, no ringing in the ears, no dizziness. No nasal drainage or congestion. No epistaxis. No sore throat. Lungs: No shortness of breath, cough, no sputum production. No wheezing. Cardiovascular: No chest pain, no lower extremity edema. No palpitations. No paroxysmal nocturnal dyspnea. No orthopnea. No lightheadedness or dizziness. No syncopal episodes. Abdominal: No abdominal pain. No nausea, vomiting. No diarrhea. No co nstipation. No bloody or tarry stools.. No loss of appetite. Genitourinary: No dysuria, increased frequency, urgency. No urinary retention. Musculoskeletal: No myalgias. No muscle weakness, no gait dysfunction, no frequent falls. No back pain. No neck pain. Integumentary: No wounds, no lesions. No rash or pruritus. No unusual bruising. No change in hair or nails. Neurologic: No aphasia. No facial droop. No change in mentation. No head injury. No headache. No paralysis. No paresthesia. Psychiatric: No depression. No anxiety. No mood swings. Endocrine: No abnormal blood sugars. No weight change. No excessive sweating or thirst. No cold intolerance. SOCIAL HISTORY Patient was a smoker 2 packs per day for 15 years and quit 25 years ago. He denies any medical marijuana or marijuana or street drug use. He states he drinks 2 beers a day. 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 He does not have oxygen, CPAP, nebulizer, walker at home. FAMILY HISTORY Mother at age 72 from hemorrhagic CVA with history of breast cancer. Father is alive at age 86 with no major medical problems. Patient has 2 bro thers and one is . Brothers had lung cancer and one had colon cancer. Patient has 1 sister with no major medical problems. He has one son and one daughter with no major medical problems. PHYSICAL EXAMINATION Gen: This is a 65-year-old male patient. He is resting in chair and appears to be comfortable and in no acute distress. Patient's is at bedside. HEENT: Head is atraumatic, normocephalic. Pupils equal, round. Sclerae is anicteric. NECK: Supple. No JVD. No lymphadenopathy. No thyromegaly. LUNGS: Clear to auscultation. No wheezes or rhonchi. No intercostal retractions. HEART: Regular rate and rhythm. Systolic ejection murmur. ABDOMEN: Soft. Bowel sounds are present. No masses. No tenderness. EXTREMITIES: No pedal edema. No calf tenderness. Dorsalis pedis +2 bilaterally. NEUROLOGICAL: Patient is awake, alert and oriented x3. Cranial nerves 2 through 12 are grossly intact. ASSESSMENT AND PLAN 1. Syncope episode. Consults with cardiology and neurology appreciated. Chlorthalidone discontinued. 2. Diarrhea, resolved. 3. History of TAVR 2017. 4. History of chronic systolic heart failure, stable. 5. Hypertension. Chlorthalidone discontinued. 6. History of testicular cancer status post surgical resection and chemotherapy. 7. Daily alcohol use. Monitor for DTs. 8. Remote history of tobacco use. 9. COVID-19 testing negative. Patient has been hospitalized during a pandemic. Patient placed as observation status. DISCHARGE PLAN home Impression and plan of care have been directed as dictated by the signing physician. Heather Wallace nurse practitioner acting as scribe for signing physician. Past Medical History Past Medical History: Heart Failure Additional Past Medical History / Comment(s): Aortic stenosis,systolic heart failure. testicular CA, Hypotension , syncope History of Any Multi-Drug Resistant Organisms: None Reported Past Surgical History: Appendectomy Additional Past Surgical History / Comment(s): right orchiectomy 2001, 2015 colonoscopy-normal leg. Past Anesthesia/Blood Transfusion Reactions: No Reported Reaction Past Psychological History: No Psychological Hx Reported Additional Psychological History / Comment(s): Pt resides with his spouse. He is independent. Smoking Status: Never smoker Past Alcohol Use History: Daily Additional Past Alcohol Use History / Comment(s): Pt was a smoker 2 packs per day for 15 years and quit 20 years ago. He denies any medical marijuana or marijuana or street drug use. He states he drinks 2 beers a day. 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 Past Drug Use History: None Reported - Past Family History Father Family Medical History: No Reported History Additional Family Medical History / Comment(s): Father is 81 yrs old and healthy. Mother Family Medical History: Cancer Additional Family Medical History / Comment(s): Mother at age 72 from a CVA hemorrhagic with history of breast cancer. Brother(s) Additional Family Medical History / Comment(s): Patient has 2 brothers and one has history of lung cancer and 1 of colon cancer. Sister(s) Additional Family Medical History / Comment(s): Patient has 1 sister with no major medical problems. Patient has one son and one daughter with no major medical problems. Medications and Allergies Home Medications Medication Instructions Recorded Confirmed Type Multivitamin [Men's Multi-Vitamin] 1 tab PO DAILY 07/07/16 08/19/20 History Aspirin EC [Ecotrin Low Dose] 81 mg PO DAILY 12/04/16 08/19/20 History Chlorthalidone 12.5 mg PO DAILY 12/04/16 08/19/20 History Cholecalciferol [Vitamin D3 (25 25 mcg PO DAILY 08/19/20 08/19/20 History Mcg = 1000 Iu)] Allergies Allergy/AdvReac Type Severity Reaction Status Date / Time No Known Allergies Allergy Verified 08/19/20 16:16 Physical Exam Vitals: Vital Signs Temp Pulse Pulse Resp BP BP Pulse Ox 08/20/20 07:08 97.9 F 81 14 123/72 97 08/20/20 02:30 98.0 F 69 18 95/59 96 08/20/20 02:00 70 16 08/19/20 20:42 97.9 F 70 16 138/84 97 08/19/20 20:00 18 08/19/20 19:23 81 18 135/94 100 08/19/20 17:00 70 18 108/77 98 08/19/20 15:12 98.4 F 90 18 113/66 97 Intake and Output 08/19/20 08/20/20 08/20/20 22:59 06:59 14:59 Intake Total 250 Balance 250 Intake: Oral 250 Other: Voiding Method Urinal Urinal # Voids 1 3 Weight 104.326 kg Results CBC & Chem 7: 08/19/20 15:54 08/19/20 15:54 Labs: Abnormal Lab Results - Last 24 Hours (Table) 08/19/20 Range/Units 15:54 Glucose 161 H (74-99) mg/dL Thrombosis Risk Factor Assmnt - Choose All That Apply Any of the Below Risk Factors Present?: Yes Each Factor Represents 1 point: Obesity (BMI >25) Other Risk Factors: Yes Each Risk Factor Represents 2 Points: Age 61-74 years Other congenital or acquired thrombophilia - If yes, enter type in comment: No Thrombosis Risk Factor Assessment Total Risk Factor Score: 3 Thrombosis Risk Factor Assessment Level: Moderate Risk
--- NOTE | 2020-08-20 12:30 | ECHOF ---
Referral Reason:near syncope MEASUREMENTS -------- HEIGHT: 182.9 cm WEIGHT: 104.3 kg BP: 123/72 IVSd: 1.4 cm (0.6 - 1.1) LVIDd: 4.2 cm (3.9 - 5.3) LVPWd: 1.2 cm (0.6 - 1.1) IVSs: 1.5 cm LVIDs: 3.3 cm LVPWs: 1.3 cm Ao Diam: 3.3 cm (2.0 - 3.7) MV E Bryce: 1.18 m/s MV DecT: 407 ms MV A Bryce: 1.58 m/s MV E/A Ratio: 0.75 AV maxP.65 mmHg AV meanP.66 mmHg RAP: 5.00 mmHg RVSP: 26.68 mmHg FINDINGS -------- Sinus rhythm. This was a techncally difficult study with suboptimal views, , Definity utilized for enhancement of i mages. The left ventricular size is normal. There is mild concentric left ventricular hypertrophy. Overa ll left ventricular systolic function is normal with, an EF between 55 - 60 %. The right ventricle is normal in size. The right atrial size is normal. There is no evidence of aortic regurgitation. Peak/mean gradient across the Aortic Valve is 5.65mmH g / 1.66mmHg. Pt had TAVR. Moderate mitral annular calcification present. The peak and mean MV gradients are 13.98mmHg 6.15mm Hg as measured by doppler. Mild mitral stenosis. The tricuspid valve appears structurally normal. Mild tricuspid regurgitation present. Right vent ricular systolic pressure is normal at < 35 mmHg. There is no pulmonic regurgitation present. The aortic root size is normal. There is a small, generalized pericardial effusion present. CONCLUSIONS -------- 1. This was a techncally difficult study with suboptimal views, , Definity utilized for enhancement o f images. 2. There is mild concentric left ventricular hypertrophy. 3. Overall left ventricular systolic function is normal with, an EF between 55 - 60 %. 4. Peak/mean gradient across the Aortic Valve is 5.65mmHg / 1.66mmHg. 5. Pt had TAVR. 6. Moderate mitral annular calcification present. 7. The peak and mean MV gradients are 13.98mmHg 6.15mmHg as measured by doppler. 8. Mild mitral stenosis. 9. Mild tricuspid regurgitation present. 10. There is a small, generalized pericardial effusion present. HUMAN RESOURCES ADMIN: Melanie Connolly RDCS
--- NOTE | 2020-08-20 16:00 | MR ---
EXAMINATION TYPE: MR brain wo con DATE OF EXAM: 08/20/2020 COMPARISON: CT brain from yesterday. Older CT study 2017 HISTORY: Syncope TECHNIQUE: Multiplanar, multisequence imaging of the brain and brainstem is performed without IV cont rast. FINDINGS: Diffusion weighted images demonstrate no evidence of a recent infarct or other diffusion abnormality. There is persistent moderate diffuse ventricular and sulcal prominence. There are focal and confluent areas of T2 hyperintensity seen throughout the white matter with more confluent appearance in the de ep and periventricular white matter. T2 coronal weighted images show hippocampal gyri to appear symme tric and felt within normal limits. Midline structures demonstrate normal morphology. The craniocervical junction appears within normal limits. Normal vascular flow voids are present. The visualized sinuses are clear and the globes are i ntact. No suspicious fluid signal bilateral mastoid air cells. IMPRESSION: No MRI evidence for recent infarct. Moderate diffuse cerebral atrophy with moderate to se kaleigh nonspecific white matter changes most likely on basis of product of chronic small vessel ischemi c change in patient of this age. No significant change from prior CTs.
--- NOTE | 2020-08-20 18:39 | EEG ---
ELECTROENCEPHALOGRAM REPORT DATE OF SERVICE: 08/20/2020. CLINICAL HISTORY: This is a 65-year-old gentleman who presented to the emergency department because of a syncopal episode. This video EEG is obtained to evaluate for seizure and epileptiform activity. RELEVANT MEDICATION: The patient is not on any antiepileptic drug. EEG TYPE: A routine 21-channel EEG is performed with video using the 10/20 electrode placement system. DESCRIPTION: Wakefulness and drowsiness are obtained. During wakefulness, there is a posterior- dominant rhythm of low to moderate voltage, reactive, well modulated, of 9.5 to 10 hertz activity. During drowsiness there is slowing and attenuation of the background activity. There is no physiological stage II sleep. There is no focal slowing. Interictal and ictal: None. ACTIVATION PROCEDURE Photic stimulation did not evoke a posterior driving response. Hyperventilation is not performed. CLINICAL INTERPRETATION: This is a normal routine EEG. There are no focal slowing, epileptiform discharges or seizure on the EEG. Clinical correlation is recommended. RIGOBERTO / ARSENION: [id number] / KERRY
[2020-08-21 02:50] VITALS: RESP 16; TEMP 97.7
[2020-08-21 07:36] VITALS: BP 113/77; PULSE 83
[2020-08-21] MEDS: ASPIRIN 81 MG PO SCH (08:53)
[2020-08-21] MEDS: HEPARIN SODIUM,PORCINE/PF 5,000 UNIT/0.5 ML SYRINGE SQ SCH (08:54)
[2020-08-21] MEDS: FAMOTIDINE 20 MG TAB PO SCH (08:54)
[2020-08-21] MEDS: CHOLECALCIFEROL 25 MCG (1000 IU) TABLET PO SCH (08:54)
[2020-08-21] MEDS: MULTIVITAMINS, THERA 1 EACH TAB PO SCH (08:54)
--- NOTE | 2020-08-21 09:23 | P.PN ---
Subjective HISTORY OF PRESENTING ILLNESS This is a pleasant 65-year-old male past medical history significant for valvular heart disease status post TAVR 2017, hypertension, systolic heart failure, daily alcohol intake and former nicotine dependence. He follows in the office with Dr. Swift out of [facility]. We have been asked to see in consultati on for syncope. He states he woke up yesterday in his usual state of health. Shortly after waking up he had one episode of loose stool causing him to feel depleted and tired. He opted to stay home from running errands with his because he just felt exhausted. He rested for most of the day. In the evening him and his were grilling outside. He got up and got himself a beer. After returning he sat down and started feeling light headed like he was going to pass out. His was there and according to her he did pass out briefly. He denies feeling short of breath, palpitations, chest pain, nausea, vomiting or diaphoresis. He has had no further symptoms since arriving at the hospital. 08/21/2020 He is seen and examined sitting up in the recliner with his at the bedside. He denies chest pain, shortness of breath, dizziness or palpitations. He has had no further episodes of syncope. EMS run sheet indicates on arrival he was in trigeminy briefly. No significant arrhythmias. Echocardiogram obtained revealed preserved LV systolic function with EF 55-60%, s/p TAVR with gradient across the valve of 1.6mmHg, moderate mitral calcification with mean gradient 6 mmHg, mild mitral stenosis and mild TR. He has been seen in evaluation by neurology and underwent an MRI of the brain was unremarkable for an acute intracranial process. Telemetry tracings reveal persistent sinus mechanism. Blood pressure 113/77 heart rate 83 afebrile maintaining oxygen saturation on room air. No ev idence of orthostatic changes. PHYSICAL EXAMINATION CONSTITUTIONAL: No apparent distress. HEENT: Head is normocephalic. Pupils are equal, round. Sclerae anicteric. Mucous membranes of the mouth are moist. No JVD. No carotid bruit. CHEST EXAMINATION: Lungs are clear to auscultation. No chest wall tenderness is noted on palpation or with deep breathing. HEART EXAMINATION: Regular rate and rhythm. S1, S2 heard. Systolic ejection murmur at the base, no gallops or rub. EXTREMITIES: 2+ peripheral pulses, no lower extremity edema and no calf tenderness. ASSESSMENT Syncope Diarrhea Valvular heart disease status post TAVR Hypertension PLAN Stable for discharge from a cardiac perspective. Discontinue chlorthalidone at home. Advised the patient to keep a blood pressure journal to bring with him to his follow-up appointment. Follow-up next week with Dr. Barber. Nurse Practitioner note has been reviewed, I agree with a documented findings and plan of care. Patient was seen and examined. Objective - Vital Signs Vital signs: Vital Signs Temp 97.7 F 08/21/20 07:00 Pulse 83 08/21/20 07:00 Resp 16 08/21/20 07:00 BP 113/77 08/21/20 07:00 Pulse Ox 96 08/21/20 07:00 Intake & Output 08/20/20 08/21/20 08/21/20 18:59 06:59 18:59 Other: Voiding Method Urinal # Voids 2 2 - Labs CBC & Chem 7: 08/19/20 15:54 08/19/20 15:54
--- NOTE | 2020-08-21 10:00 | P.DS ---
Providers Date of admission: 08/19/20 17:17 Expected date of discharge: 08/21/20 Attending physician: Zaid Villalobos Consults: 08/19/20 17:17 Consult Physician Urgent Consulting Provider: Joshua Gonzales Consult Reason/Comments: syncope Do you want consulting provider notified?: Yes 08/20/20 09:41 Consult Physician Routine Consulting Provider: Brain Aguilar Consult Reason/Comments: syncope, rule out seizure Do you want consulting provider notified?: Yes [facility] Course: HISTORY OF PRESENT ILLNESS This is a 65-year-old male. His primary care physician is Dr. Amor Gallardo. He has a past medical history of TAVR 2017, hypertension, chronic systolic heart failure, testicular cancer on the right diagnosed in 2001 status post surgical resection and chemotherapy, hard of hearing, varicose veins status post stripping, remote history of tobacco use, daily alcohol use. Patient's states that he was sitting in a chair outside on the patio and she looked at him and he was shaking with his eyes rolling back in his head and he passed out. She immediately called EMS and she was told that he had an irregular heartbeat. Patient has had few episodes of loose stool, feeling tired. He apparently has had syncopal episodes in the past with one occurring after aortic valve procedure. He had a workup done at that time and was told it was related to low blood pressure and dehydration. He has had this occur only a few times during his life. Patient came into [facility] emergency center for evaluation. He was found to be afebrile, heart rate 90, blood pressure 113/66, pulse ox 97% on room air. Orthostatic vital signs were negative. EKG was sinus rhythm with T-wave inversions noted in the inferior leads and mild ST depression inferiorly. Chest xray negative for an acute cardiopulmonary process. CT of the brain is negative for an acute intracranial hemorrhage or midline shift with moderate diffuse cerebral atrophy and chronic small vessel ischemic changes. CBC unremarkable, sodium 142, potassium 3.5, creatinine 0.85, magnesium 1.9, troponins negative 3. Patient was placed in the observation unit and consult requested with cardiology and neurology. Patient has been seen by neurology and EEG and MRI ordered. Carotid duplex revealed no hemodynamically significant stenosis. Patient has been seen by cardiology and echocardiogram has been ordered and chlorthalidone was discontinued. Records from his primary hha were requested. 08/21: Patient has been reevaluated by cardiology and cleared for discharge. Chlorthalidone to be discontinued at home and patient to keep a journal of his blood pressure readings. Patient to follow up with Dr. Barber next week. Patient has been asymptomatic since admission. He has been ambulating without lightheadedness or dizziness. No chest pain or shortness of breath. Patient's is at bedside. He will be discharged home today in stable condition. EEG was normal. MRI of the brain revealed no evidence of recent infarct. Moderate diffuse cerebral atrophy with moderate to severe nonspecific white matter changes most likely on the basis of chronic small vessel ischemic change. Echocardiogram reveals EF of 55-60%, mild concentric left hypertrophy, history of TAVR,, mild mitral stenosis, mild tricuspid regurgitation. Small generalized pericardial effusion. ASSESSMENT AND PLAN 1. Syncope episode. 2. Diarrhea, resolved. 3. History of TAVR 2016. 4. History of chronic systolic heart failure, stable. 5. Hypertension. Chlorthalidone discontinued. 6. History of testicular cancer status post surgical resection and chemotherapy. 7. Daily alcohol use. 8. Remote history of tobacco use. 9. COVID-19 testing negative. Patient has been hospitalized during a pandemic. DISCHARGE PLAN home Impression and plan of care have been directed as dictated by the signing physician. Heather Wallace nurse practitioner acting as scribe for signing physician. Patient Condition at Discharge: Good Plan - Discharge Summary Discharge Rx Participant: Yes New Discharge Prescriptions: Continue Multivitamin [Men's Multi-Vitamin] 1 tab PO DAILY Aspirin EC [Ecotrin Low Dose] 81 mg PO DAILY Cholecalciferol [Vitamin D3 (25 Mcg = 1000 Iu)] 25 mcg PO DAILY Discontinued Chlorthalidone 12.5 mg PO DAILY Discharge Medication List Multivitamin [Men's Multi-Vitamin] 1 tab PO DAILY 07/07/16 [History] Aspirin EC [Ecotrin Low Dose] 81 mg PO DAILY 12/04/16 [History] Cholecalciferol [Vitamin D3 (25 Mcg = 1000 Iu)] 25 mcg PO DAILY 08/19/20 [H istory] Follow up Appointment(s)/Referral(s): Sriram Barber MD [STAFF PHYSICIAN] - 1 Week (The office will call with appointment date and time. ) Gal Gallardo MD [Primary Care Provider] - 1 Week Discharge Disposition: HOME SELF-CARE
== END 2020-08-21 10:32 | disposition home or self-care (01) ==
LOC: EC 14:46 → 6NMEDSUR 17:17
PROVIDERS: ADMIT Internal Medicine Geriatric Medicine; ATTEND Internal Medicine Geriatric Medicine
DX: R55 Syncope and collapse (principal); R19.7 Diarrhea, unspecified; H91.90 Unspecified hearing loss, unspecified ear; I11.0 Hypertensive heart disease with heart failure; I50.22 Chronic systolic (congestive) heart failure; I83.90 Asymptomatic varicose veins of unspecified lower extremity; I49.9 Cardiac arrhythmia, unspecified; I35.0 Nonrheumatic aortic (valve) stenosis; R00.8 Other abnormalities of heart beat; Z98.890 Other specified postprocedural states; Z85.47 Personal history of malignant neoplasm of testis; Z87.891 Personal history of nicotine dependence; Z95.2 Presence of prosthetic heart valve; Z92.21 Personal history of antineoplastic chemotherapy; Z20.822 Contact with and (suspected) exposure to COVID-19; Z79.82 Long term (current) use of aspirin; Z79.899 Other long term (current) drug therapy; E66.9 Obesity, unspecified; Z68.29 Body mass index [BMI] 29.0-29.9, adult; I44.0 Atrioventricular block, first degree; Z82.3 Family history of stroke; Z80.3 Family history of malignant neoplasm of breast; Z80.1 Family history of malignant neoplasm of trachea, bronchus and lung; Z80.0 Family history of malignant neoplasm of digestive organs
CPT/HCPCS: 96372 ×3; 99285; 36415; 95816; 93005; 80053; 83735; 84484; 85025; 85610; 85730; 81003; 87636; 71046; 93880; 70450; 70551; G0378 ×3; C8929; Q9950; J1644 ×3; 93306